=== PATIENT | female | born 1955 | race American Indian/Alaskan Native ===

== ENCOUNTER 2018-09-25 18:26 | Emergency (ER) | payer SELFPAY ==
[2018-09-25 19:03] VITALS: BP 154/89; PULSE 77; RESP 18; TEMP 98.1
[2018-09-25] MEDS ORDERED: Sodium Chloride 0.9% 1,000 ML IV STA (19:22)
[2018-09-25] MEDS ORDERED: Insulin Regular 1 UNITS/0.01 ML ML IVP STA (19:22)
[2018-09-25 19:51] LABS: BASO # 0.01 K/mm3 (0.0-2.0); BASO % 0.2 % (0.0-3.0); EOS # 0.2 (0.0-0.7); EOS % 2.4 % (1.5-5.0); GRAN # 2.45 (1.4-6.5); GRAN % 39.7 % (50.0-68.0); HEMOGLOBIN 13.3 g/dL (12.0-16.0); LYMPH # 3.4 (1.2-3.4); LYMPH % 54.5 % (22.0-35.0); MEAN CELL VOLUME 82.8 fl (80.0-105.0); MEAN CORPUSCULAR HEMOGLOBIN 28.5 pg (25.0-35.0); MEAN CORPUSCULAR HGB CONC 34.5 g/dl (31.0-37.0); MEAN PLATELET VOLUME 11.1 fl (7.0-11.0); MONO # 0.2 (0.1-0.6); MONO % 3.2 % (1.0-6.0); RBC 4.66 10^6/uL (3.5-6.1); WHITE BLOOD COUNT 6.2 10^3/uL (4.5-11.0)
--- NOTE | 2018-09-25 19:53 | ED PDOC ---
Arrival/HPI - General Chief Complaint: High Blood Sugar Time Seen by Provider: 09/25/18 18:39 Historian: Patient - History of Present Illness Narrative History of Present Illness (Text): 09/25/18 19:50 63yo female with pmhx of hypertension and Diabetes who present with complaint elevated BS. The daughter by the bedside [place] her insulin 2weeks ago, so she came to ED for medication. The daughter states she is not sure what the sugar was at home. Patient denies chest pain, SOB, nausea, vomiting, dizziness, polyuria/dipsia/phagia, focal weakness, fever, chills, visual changes, any other complaint. Past Medical History - Provider Review Nursing Documentation Reviewed: Yes - Reproductive Menopause: Yes - Cardiac Hx Hypertension: Yes - Endocrine/Metabolic Hx Diabetes Mellitus Type 2: Yes - Psychiatric Hx Substance Use: No Family/Social History - Physician Review Nursing Documentation Reviewed: Yes Family/Social History: Unknown Family HX Smoking Status: Never Smoked Hx Alcohol Use: No Frequency of alcohol use: Socially Hx Substance Use: No Allergies/Home Meds Allergies/Adverse Reactions: Allergies No Known Allergies Allergy (Verified 09/25/18 19:03) Review of Systems - Physician Review All systems were reviewed & negative as marked: Yes - Review of Systems Constitutional: Normal Eyes: Normal ENT: Normal Respiratory: Normal Cardiovascular: Normal Gastrointestinal: Normal Genitourinary Female: Normal Musculoskeletal: Normal Skin: Normal Neurological: Normal Endocrine: Other (Elevated BS) Hemo/Lymphatic: Normal Psychiatric: Normal Physical Exam Vital Signs Reviewed: Yes Vital Signs Temp Pulse Resp BP Pulse Ox 09/25/18 18:57 98.1 F 77 18 154/89 H 100 Temperature: Afebrile Blood Pressure: Normal Pulse: Regular Respiratory Rate: Normal Appearance: Positive for: Well-Appearing, Non-Toxic, Comfortable Pain Distress: None Mental Status: Positive for: Alert and Oriented X 3 Finger Stick Blood Glucose: 308 - Systems Exam Head: Present: Atraumatic, Normocephalic Pupils: Present: PERRL Extroacular Muscles: Present: EOMI Conjunctiva: Present: Normal Mouth: Present: Moist Mucous Membranes Neck: Present: Normal Range of Motion Respiratory/Chest: Present: Clear to Auscultation, Good Air Exchange. No: Respiratory Distress, Accessory Muscle Use Cardiovascular: Present: Regular Rate and Rhythm, Normal S1, S2. No: Murmurs Abdomen: No: Tenderness, Distention, Peritoneal Signs Back: Present: Normal Inspection Upper Extremity: Present: Normal Inspection. No: Cyanosis, Edema Lower Extremity: Present: Normal Inspection. No: Edema Neurological: Present: GCS=15, CN II-XII Intact, Speech Normal Skin: Present: Warm, Dry, Normal Color. No: Rashes Psychiatric: Present: Alert, Oriented x 3, Normal Insight, Normal Concentration Medical Decision Making ED Course and Treatment: 09/26/18 00:25 63yo female present with the daughter requesting refill of her insulin. PT was hemodynamically stable in ED. Her FS was 320 in ED Lab UA 1L NS, 5units of regular insulin EKG On re evaluation her FS improved in ED with medication and hydration Lab was otherwise unremarkable EKG NSR @ 63bpm. N-stemi PT was DC home with Novolog 70/30 Referred to the clinic - Medication Orders Current Medication Orders: Sodium Chloride (Sodium Chloride 0.9%) 1,000 mls @ 999 mls/hr IV .Q1H1M STA Stop: 09/25/18 20:22 Discontinued Medications Insulin Human Regular (Humulin R) 5 units IVP ONCE STA Stop: 09/25/18 19:23 Disposition/Present on Arrival - Present on Arrival Any Indicators Present on Arrival: No History of DVT/PE: No History of Uncontrolled Diabetes: No Urinary Catheter: No History of Decub. Ulcer: No History Surgical Site Infection Following: None - Disposition Have Diagnosis and Disposition been Completed?: Yes Diagnosis: Diabetes Disposition: HOME/ ROUTINE Disposition Time: 20:55 Patient Plan: Discharge Condition: STABLE Discharge Instructions (ExitCare): Type 2 Diabetes, Diabetes Diet Additional Instructions: Follow up with the clinic Return to ED for any new or worsening symptoms Prescriptions: Insulin Aspart/Insulin Aspar [Novolog Mix 70/30 (70/30 units/ml)] 100 units SC BID #100 unit Referrals: Chrissy Smith MD [Medical Doctor] - Follow up with primary Forms: [employer] (Nigerian)
[2018-09-25 20:05] LABS: INR 0.99; PARTIAL THROMBOPLASTIN TIME 35.2 Seconds (25.1-36.5); PROTHROMBIN TIME 11.3 SECONDS (9.4-12.5)
[2018-09-25 20:10] LABS: ALB/GLOB RATIO 1.3 (1.1-1.8); ALBUMIN 4.1 g/dL (3.0-4.8); ALT/SGPT 27 U/L (7-56); AST/SGOT 28 U/L (14-36); BLOOD UREA NITROGEN 18 mg/dL (7-21); CALCIUM 9.9 mg/dL (8.4-10.5); GFR NON-AFRICAN AMERICAN > 60
[2018-09-25 20:12] LABS: TROPONIN I < 0.01 ng/mL
[2018-09-25 21:06] LABS: URINE BILIRUBIN NEGATIVE (NEGATIVE); URINE BLOOD NEGATIVE (NEGATIVE); URINE GLUCOSE (UA) >=1000 mg/dL (NEGATIVE); URINE LEUKOCYTE ESTERASE NEGATIVE Leu/uL (NEGATIVE); URINE PROTEIN NEGATIVE mg/dL (<30 mg/dL); URINE UROBILINOGEN 0.2 E.U./dL (<1 E.U./dL)
[2018-09-25 21:08] LABS: URINE APPEARANCE SL CLOUDY (CLEAR); URINE COLOR YELLOW (YELLOW)
[2018-09-25 21:36] VITALS: O2SAT 98
--- NOTE | 2018-09-26 20:48 | CARD ---
APPROVED REPORT Date of service: 09/25/2018 EKG Measurement Heart [id number] <Conclusion> Normal sinus rhythm Possible Left atrial enlargement Borderline ECG
== END 2018-09-25 21:34 | disposition home or self-care (01) ==
LOC: ED 18:26
DX: E11.9 Type 2 diabetes mellitus without complications (principal); Z79.4 Long term (current) use of insulin; I10 Essential (primary) hypertension
CPT/HCPCS: 80053; 81003; 82550; 82948; 83615; 83735; 84484; 85025; 85610; 85730; 93005; 96361; 96374; 99283; J7030

== ENCOUNTER 2018-11-23 09:10 | Outpatient (CLI) | payer OTHER | END 2018-11-23 09:11 | disposition home or self-care (01) | LOC: LAB 09:10 ==

== ENCOUNTER 2018-11-26 15:58 | Outpatient (CLI) | payer OTHER | END 2018-11-26 15:59 | disposition home or self-care (01) | LOC: LAB 15:58 ==

== ENCOUNTER 2018-12-05 10:20 | Inpatient (IN) | payer MEDICAID, OTHER ==
[~2018-12-05 10:20] MED LIST: MetroNIDAZOLE 500 mg/100 ml IVPB ONE
[2018-12-05 10:44] VITALS: BMI 23.8
[2018-12-05 11:52] LABS: BASO # 0.01 K/mm3 (0.0-2.0); BASO % 0.2 % (0.0-3.0); EOS # 0.1 (0.0-0.7); EOS % 1.9 % (1.5-5.0); HEMOGLOBIN 13.4 g/dL (12.0-16.0); LYMPH # 2.8 (1.2-3.4); LYMPH % 46.8 % (22.0-35.0); MEAN CELL VOLUME 85.2 fl (80.0-105.0); MEAN CORPUSCULAR HEMOGLOBIN 28.7 pg (25.0-35.0); MEAN CORPUSCULAR HGB CONC 33.7 g/dl (31.0-37.0); MEAN PLATELET VOLUME 11.3 fl (7.0-11.0); MONO # 0.3 (0.1-0.6); MONO % 5.1 % (1.0-6.0); RBC 4.67 10^6/uL (3.5-6.1); RED CELL DISTRIBUTION WIDTH 12.7 % (11.5-14.5); WHITE BLOOD COUNT 5.9 10^3/uL (4.5-11.0)
[2018-12-05 11:57] LABS: URINE BILIRUBIN NEGATIVE (NEGATIVE); URINE BLOOD NEGATIVE (NEGATIVE); URINE GLUCOSE (UA) >=1000 mg/dL (NEGATIVE); URINE LEUKOCYTE ESTERASE SMALL Leu/uL (NEGATIVE); URINE PROTEIN NEGATIVE mg/dL (<30 mg/dL); URINE UROBILINOGEN 0.2 E.U./dL (<1 E.U./dL)
[2018-12-05 11:59] LABS: URINE APPEARANCE CLEAR (CLEAR); URINE COLOR YELLOW (YELLOW)
--- NOTE | 2018-12-05 12:01 | CP.PCM.CON ---
History of Present Illness - History of Present Illness History of Present Illness: 63 year old female, past medical history of mucinous ovarian carcinoma (2018), HTN, DM, sent to the emergency department by Dr. Smith after evaluation of an outpatient CT abdomen/pelvis on 11/23 showed patient has a dilated appendix with peripheral calcifications suspicious for a mucocele vs mucoepidermoid carcinoma. 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 Patient recently moved here from [place]. In [place], patient underwent a VALERIANO+BSO and no subsequent chemoradiation because tumor was deemed very low malignant potential. Currently, patient states she has intermittent 8/10, burning pain in the right lower quadrant since october but over the past week has gotten worse. The pain does not radiate. Sleeping on her right side causes discomfort. Denies f/c, n/v/d, SOB, CP, bloody bowel movements, or urinary symptoms. PMH: See above PSH: VALERIANO+BSO (2018), Breast cyst aspiration FH: Paternal and maternal sides have DM and HTN, but no known cancer history. SH: Denies tobacco, alcohol, or illicit drug use. Recently moved here from [place]. Daughter takes care of patient. ALL: NKDA Meds: See MAR PMD: Dr. Smith Review of Systems - Constitutional Constitutional: Weakness. absent: Chills, Fever - EENT Eyes: absent: Blurred Vision, Change in Vision Nose/Mouth/Throat: absent: Nasal Congestion, Nasal Discharge - Cardiovascular Cardiovascular: absent: Chest Pain, Dyspnea - Respiratory Respiratory: absent: Cough, Dyspnea - Gastrointestinal Gastrointestinal: Abdominal Pain, Cramping. absent: Coffee Ground Emesis, Constipation, Diarrhea, Hematemesis, Melena, Nausea, Vomiting - Genitourinary Genitourinary: absent: Difficulty Urinating, Dysuria - Musculoskeletal Musculoskeletal: absent: Back Pain, Neck Pain - Integumentary Integumentary: absent: Bleeding Lesions, Changing Lesions - Psychiatric Psychiatric: absent: Anxiety, Depression Past Patient History - Infectious Disease Hx of Infectious Diseases: None - Past Social History Smoking Status: Never Smoked - CARDIAC Hx Hypertension: Yes - ENDOCRINE/METABOLIC Hx Diabetes Mellitus Type 2: Yes - GENITOURINARY/GYNECOLOGICAL Other/Comment: Ovarian CA - PSYCHIATRIC Hx Substance Use: No - SURGICAL HISTORY Hx Herniorrhaphy: Yes Hx Hysterectomy: Yes Other/Comment: ovarian ca sx - ANESTHESIA Hx Anesthesia: Yes Hx Anesthesia Reactions: No Hx Malignant Hyperthermia: No Meds Allergies/Adverse Reactions: Allergies Allergy/AdvReac Type Severity Reaction Status Date / Time No Known Allergies Allergy Verified 09/25/18 19:03 Physical Exam - Constitutional Appears: Well, Non-toxic, No Acute Distress - Head Exam Head Exam: ATRAUMATIC, NORMAL INSPECTION, NORMOCEPHALIC - Eye Exam Eye Exam: EOMI - ENT Exam ENT Exam: Mucous Membranes Dry - Respiratory Exam Respiratory Exam: NORMAL BREATHING PATTERN. absent: Wheezes, Respiratory Distress - Cardiovascular Exam Cardiovascular Exam: REGULAR RHYTHM. absent: Tachycardia - GI/Abdominal Exam GI & Abdominal Exam: Normal Bowel Sounds, Soft, Tenderness Additional comments: RLQ tenderness to palpation, palpable firm mass correlates with image on CT scan - Extremities Exam Extremities exam: Positive for: normal inspection, pedal pulses present - Neurological Exam Neurological exam: Alert, Oriented x3 - Psychiatric Exam Psychiatric exam: Normal Affect, Normal Mood - Skin Skin Exam: Dry, Intact, Normal Color, Warm Additional comments: midline scar from prior surgery - hypertrophic scar Results - Vital Signs Recent Vital Signs: Last Vital Signs Temp 97.5 F L 12/05/18 10:44 Pulse 98 H 12/05/18 10:44 Resp 18 12/05/18 10:44 BP 131/86 12/05/18 10:44 Pulse Ox 100 12/05/18 10:44 - Labs Result Diagrams: 12/05/18 11:30 12/05/18 11:30 Assessment & Plan - Assessment and Plan (Free Text) Assessment: 63F w/ RLQ abdominal pain CTAP evidence of 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 Arnie Field PGY1
[2018-12-05 12:04] LABS: ALB/GLOB RATIO 1.3 (1.1-1.8); ALBUMIN 4.1 g/dL (3.0-4.8); ALT/SGPT 17 U/L (7-56); AST/SGOT 23 U/L (14-36); BLOOD UREA NITROGEN 14 mg/dL (7-21); CALCIUM 9.8 mg/dL (8.4-10.5); GFR NON-AFRICAN AMERICAN > 60; LIPASE 181 U/L (23-300)
[2018-12-05 12:15] LABS: URINE BACTERIA SMALL /hpf; URINE RBC 0 - 2 /hpf (0-2)
--- NOTE | 2018-12-05 12:25 | ED PDOC ---
Arrival/HPI - General Chief Complaint: Abdominal Pain Time Seen by Provider: 12/05/18 10:30 Historian: Patient - History of Present Illness Narrative History of Present Illness (Text): 12/05/18 12:42 63yr old female with a history of ovarian carcinoma, TAHBSO, DM, htn, sent in from the medical clinic for evaluation of an abnormal CAT scan. Patient had a CAT scan of the abdomen and pelvis on 11/23/18 which showed a dilated appendix with concern for mucocele versus epidermoid carcinoma. Patient states she has been having some increasing abdominal pain greatest in the right lower quadrant of the abdomen for the past week although the pain seems to increase in the right lower quadrant over the past 2 days. No nausea vomiting diarrhea or constipation. No chest pain or shortness of breath. No fevers or chills. Patient's daughter states that the patient had an abnormal CAT scan a few months ago which showed the same dilated appendix. Past Medical History - Provider Review Nursing Documentation Reviewed: Yes - Travel History Have you recently traveled outside [place] w/in the past 3 mons?: No - Infectious Disease Hx of Infectious Diseases: None - Cardiac Hx Hypertension: Yes - Endocrine/Metabolic Hx Diabetes Mellitus Type 2: Yes - Genitourinary/Gynecological Other/Comment: Ovarian CA - Psychiatric Hx Substance Use: No - Surgical History Hx Hysterectomy: Yes Other/Comment: ovarian ca sx - Anesthesia Hx Anesthesia: Yes Hx Anesthesia Reactions: No Hx Malignant Hyperthermia: No Family/Social History - Physician Review Nursing Documentation Reviewed: Yes Family/Social History: Unknown Family HX Smoking Status: Never Smoked Hx Alcohol Use: No Hx Substance Use: No Allergies/Home Meds Allergies/Adverse Reactions: Allergies No Known Allergies Allergy (Verified 09/25/18 19:03) Review of Systems - Review of Systems Constitutional: absent: Fatigue, Fevers Respiratory: absent: SOB, Cough Cardiovascular: absent: Chest Pain, Palpitations Gastrointestinal: Abdominal Pain. absent: Constipation, Diarrhea, Nausea, Vomiting Genitourinary Female: absent: Dysuria, Frequency, Hematuria Musculoskeletal: absent: Arthralgias, Back Pain, Neck Pain Skin: absent: Rash, Pruritis Neurological: absent: Headache, Dizziness Psychiatric: absent: Anxiety, Depression Physical Exam Vital Signs Reviewed: Yes Vital Signs Temp Pulse Resp BP Pulse Ox 12/05/18 10:44 97.5 F L 98 H 18 131/86 100 Temperature: Afebrile Blood Pressure: Normal Pulse: Regular Respiratory Rate: Normal Appearance: Positive for: Well-Appearing, Non-Toxic, Comfortable Pain Distress: None Mental Status: Positive for: Alert and Oriented X 3 - Systems Exam Head: Present: Atraumatic Mouth: Present: Moist Mucous Membranes Neck: Present: Normal Range of Motion Respiratory/Chest: Present: Clear to Auscultation, Good Air Exchange. No: Respiratory Distress, Accessory Muscle Use Cardiovascular: Present: Regular Rate and Rhythm, Normal S1, S2. No: Murmurs Abdomen: Present: Tenderness (+ rlq tenderness), Normal Bowel Sounds. No: Distention, Rebound, Guarding Back: Present: Normal Inspection. No: Midline Tenderness, Paraspinal Tenderness Upper Extremity: Present: Normal ROM Lower Extremity: Present: Normal ROM Neurological: Present: GCS=15, Speech Normal Skin: Present: Warm, Dry, Normal Color. No: Rashes Psychiatric: Present: Alert, Oriented x 3 Medical Decision Making ED Course and Treatment: 12/05/18 12:46 63yr old female with hx of ovarian carcinoma with VALERIANO and BSO now with abnormal CT showing dilated appendix concerning for mucocele versus epidermoid carcinoma CBC within normal limits CMP glucose 261 Chest x-ray within normal limits UA shows small leukocytes with 5-10 WBCs EKG shows normal sinus rhythm at 65 bpm normal axis normal intervals no ST elevations Surgery was consulted. residential collections saw the patient at bedside. Case was discussed with Dr. Bal in depth accepts observational status admission to [facility] with surgical consult Patient started on Rocephin for UTI All aspects of this case were discussed the attending of record. Impression: UTI, abdominal pain, abnormal CAT scan Admit obs [facility] - Lab Interpretations Lab Results: Total Bilirubin 0.4 mg/dL (0.2-1.3) 12/05/18 11:30 AST 23 U/L (14-36) 12/05/18 11:30 ALT 17 U/L (7-56) 12/05/18 11:30 Alkaline Phosphatase 82 U/L (38-126) 12/05/18 11:30 Total Protein 7.4 g/dL (5.8-8.3) 12/05/18 11:30 Albumin 4.1 g/dL (3.0-4.8) 12/05/18 11:30 Globulin 3.3 gm/dL 12/05/18 11:30 Albumin/Globulin Ratio 1.3 (1.1-1.8) 12/05/18 11:30 Lipase 181 U/L (23-300) 12/05/18 11:30 Urine Color Yellow (YELLOW) 12/05/18 11:30 Urine Appearance Clear (CLEAR) 12/05/18 11:30 Urine pH 6.0 (4.7-8.0) 12/05/18 11:30 Ur Specific [place] 1.020 (1.005-1.035) 12/05/18 11:30 Urine Protein Negative mg/dL (<30 mg/dL) 12/05/18 11:30 Urine Glucose (UA) >=1000 mg/dL (NEGATIVE) 12/05/18 11:30 Urine Ketones Negative mg/dL (NEGATIVE) 12/05/18 11:30 Urine Blood Negative (NEGATIVE) 12/05/18 11:30 Urine Nitrate Negative (NEGATIVE) 12/05/18 11:30 Urine Bilirubin Negative (NEGATIVE) 12/05/18 11:30 Urine Urobilinogen 0.2 E.U./dL (<1 E.U./dL) 12/05/18 11:30 Ur Leukocyte Esterase Small [place]/uL (NEGATIVE) H 12/05/18 11:30 Urine RBC 0 - 2 /hpf (0-2) 12/05/18 11:30 Urine WBC 5 - 10 /hpf (0-6) H 12/05/18 11:30 Ur Epithelial Cells 4 - 5 /hpf (0-5) 12/05/18 11:30 Urine Bacteria Small /hpf (NONE) 12/05/18 11:30 - RAD Interpretation Radiology Orders: 12/05/18 11:10 CHEST PORTABLE [RAD] Stat Disposition/Present on Arrival - Present on Arrival Any Indicators Present on Arrival: No History of DVT/PE: No History of Uncontrolled Diabetes: No Urinary Catheter: No History of Decub. Ulcer: No History Surgical Site Infection Following: None - Disposition Have Diagnosis and Disposition been Completed?: Yes Diagnosis: Abdominal pain, Urinary tract infection, Abnormal computed tomography of abdomen and pelvis Disposition: HOSPITALIZED Disposition Time: 12:15 Patient Plan: Observation Condition: FAIR
[2018-12-05] MEDS ORDERED: cefTRIAXone 1 gm 1 GM/100 ML BAG IVPB STA (12:42)
--- NOTE | 2018-12-05 13:18 | RAD ---
Date of service: 12/05/2018 HISTORY: Abdominal pain COMPARISON: No prior. FINDINGS: LUNGS: The lungs are well inflated and clear. PLEURA: No pleural effusions or pneumothorax. CARDIOVASCULAR: The heart is normal in size. No aortic atherosclerotic calcifications present. OSSEOUS STRUCTURES: Within normal limits for the patient's age. VISUALIZED UPPER ABDOMEN: Normal. OTHER FINDINGS: None. IMPRESSION: No active pulmonary disease.
--- NOTE | 2018-12-05 13:55 | CP.PCM.HP ---
<Randell Evans - Last Filed: 12/05/18 14:41> History of Present Illness - History of Present Illness History of Present Illness: Randell Evans, PGY-1 History and Physical for Hospitalist Service CC: R sided abdominal pain HPI: 63 year old [facility] female with PMHx of mucinous ovarian carcinoma with VALERIANO-BSO performed back in 2018 in [place], DM on insulin and glipizide, and HTN controlled by diet who presents with complaints of R sided abdominal pain.The patient was sent in from the medical clinic for evaluation of an abnormal abdominal/pelvic CT scan performed two weeks ago, which showed a dilated appendix with concern for mucocele versus epidermoid carcinoma. Patient states she has been having some increasing abdominal pain for the past week, although the pain initially started less severe back in September associated with decreased appetite. Patient chest pain, palpitations, fevers, chills, shortness of breath, cough, nausea, vomiting, diarrhea, hematuria, melena, hematochezia, headaches, dysuria and constipation. 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 Patient takes Aspirin for stroke prophylaxis per home PCP back in [place]. PMHx: DM, HTN, ovarian carcinoma PSHx: VALERIANO-BSO All: anesthetic - ? Ropivacaine Social: Recently immigrated from [place] in 10/03. Denies tobacco, ETOH and illicit drug use Fam Hx: DM and HTN in mother, denies hx of cancer Meds: Insulin, Glipizide, ASA PMD: Dr. Smith Present on Admission - Present on Admission Any Indicators Present on Admission: No Review of Systems - Review of Systems Review of Systems: 12 point ROS completed and negative except as described in HPI. Past Patient History - Infectious Disease Hx of Infectious Diseases: None - Past Social History Smoking Status: Never Smoked - CARDIAC Hx Hypertension: Yes - ENDOCRINE/METABOLIC Hx Diabetes Mellitus Type 2: Yes - GENITOURINARY/GYNECOLOGICAL Other/Comment: Ovarian CA - PSYCHIATRIC Hx Substance Use: No - SURGICAL HISTORY Hx Herniorrhaphy: Yes Hx Hysterectomy: Yes Other/Comment: ovarian ca sx - ANESTHESIA Hx Anesthesia: Yes Hx Anesthesia Reactions: No Hx Malignant Hyperthermia: No Meds Allergies/Adverse Reactions: Allergies Allergy/AdvReac Type Severity Reaction Status Date / Time No Known Allergies Allergy Verified 09/25/18 19:03 Physical Exam - Constitutional Appears: Well, Non-toxic, No Acute Distress - Head Exam Head Exam: ATRAUMATIC, NORMAL INSPECTION, NORMOCEPHALIC - Eye Exam Eye Exam: EOMI, Normal appearance Pupil Exam: PERRL - ENT Exam ENT Exam: Mucous Membranes Moist, Normal Exam - Neck Exam Neck exam: Positive for: Full Rom, Normal Inspection - Respiratory Exam Respiratory Exam: Clear to Auscultation Bilateral, NORMAL BREATHING PATTERN. absent: Chest Wall Tenderness, Rales, Rhonchi, Wheezes - Cardiovascular Exam Cardiovascular Exam: RRR, +S1, +S2 - GI/Abdominal Exam GI & Abdominal Exam: Normal Bowel Sounds, Soft, Tenderness (moderate RLQ tenderness wrapping around to R flank, Mckeon's negative, Rovsing negative). absent: Distended, Firm, Guarding, Rebound - Extremities Exam Extremities exam: Positive for: full ROM, normal inspection. Negative for: pe loren edema, tenderness - Back Exam Back exam: CVA tenderness (R), FULL ROM, NORMAL INSPECTION. absent: CVA tenderness (L) Results - Vital Signs Recent Vital Signs: Last Vital Signs Temp 97.5 F L 12/05/18 10:44 Pulse 98 H 12/05/18 10:44 Resp 18 12/05/18 10:44 BP 131/86 12/05/18 10:44 Pulse Ox 100 12/05/18 10:44 - Labs Result Diagrams: 12/05/18 11:30 12/05/18 11:30 Labs: Laboratory Results - last 24 hr 12/05/18 12/05/18 12/05/18 11:30 11:30 11:30 WBC 5.9 RBC 4.67 Hgb 13.4 Hct 39.8 MCV 85.2 MCH 28.7 MCHC 33.7 RDW 12.7 Plt Count 197 MPV 11.3 H Neut % (Auto) 46.0 L Lymph % (Auto) 46.8 H [place] % (Auto) 5.1 Eos % (Auto) 1.9 Baso % (Auto) 0.2 Lymph # (Auto) 2.8 [place] # (Auto) 0.3 Eos # (Auto) 0.1 Baso # (Auto) 0.01 Absolute Neuts (auto) 2.73 Sodium 138 Potassium 4.1 Chloride 103 Carbon Dioxide 28 Anion Gap 11 BUN 14 Creatinine 0.5 L Est GFR ( Amer) > 60 Est GFR (Non-Af Amer) > 60 Random Glucose 261 H Calcium 9.8 Total Bilirubin 0.4 AST 23 ALT 17 Alkaline Phosphatase 82 Total Protein 7.4 Albumin 4.1 Globulin 3.3 Albumin/Globulin Ratio 1.3 Lipase 181 Urine Color Yellow Urine Appearance Clear Urine pH 6.0 Ur Specific [place] 1.020 Urine Protein Negative Urine Glucose (UA) >=1000 Urine Ketones Negative Urine Blood Negative Urine Nitrate Negative Urine Bilirubin Negative Urine Urobilinogen 0.2 Ur Leukocyte Esterase Small H Urine RBC 0 - 2 Urine WBC 5 - 10 H Ur Epithelial Cells 4 - 5 Urine Bacteria Small Assessment & Plan - Assessment and Plan (Free Text) Assessment: Ms. Galeano is a 63 F w PMHx of ovarian cancer, VALERIANO-BSO, uncontrolled DM and HTN who presents with RLQ abdominal pain. RLQ abdominal pain - CXR no active pulm disease - CT abd/pel 11/23/18 shows Marked dilatation of the appendix measuring 7.6 x 4.0 centimeters with peripheral mural calcification along the distal aspect as well as internal signal heterogeneity, suspicious for a mucocele though mucoid epidermoid carcinoma is not excluded. - General Surgery consulted - Dr. Davidson -recs appreciated regarding assessment for surgical intervention - Toradol for pain control, Zofran for nausea Uncontrolled DM - Hgba1c 11.3, cholesterol under control - Lantus 30 units HS, Medium ISS - Accuchecks , continue to monitor HTN - EKG NSR @ 65 bpm, no ST or T wave changes - Continue to monitor Asymptomatic UTI - Patient denies dysuria, burning and hesitancy. Small leuk esterase and 5-10 WBCs on UA - Rocephin given in ED - No further ABx warranted Stroke prophylaxis - c/w home ASA GI/DVT Ppx - Pepcid/Lovenox Patient seen, case reviewed and plan approved by Dr. Ko. Randell Evans, PGY-1 <Clay Ko - Last Filed: 12/06/18 13:08> Results - Vital Signs Recent Vital Signs: Last Vital Signs Temp 97.6 F 12/06/18 06:00 Pulse 57 L 12/06/18 06:00 Resp 16 12/06/18 06:00 BP 125/80 12/06/18 06:00 Pulse Ox 100 12/06/18 06:00 - Labs Result Diagrams: 12/05/18 11:30 12/05/18 11:30 Labs: Laboratory Results - last 24 hr 12/05/18 12/05/18 12/06/18 16:05 21:23 07:00 PT 12.1 INR 1.07 POC Glucose (mg/dL) 227 H 216 H 12/06/18 12/06/18 07:06 11:21 PT INR POC Glucose (mg/dL) 103 165 H Attending/Attestation - Attestation I have personally seen and examined this patient.: Yes I have fully participated in the care of the patient.: Yes I have reviewed all pertinent clinical information: Yes Notes (Text): 12/06/18 13:04 Attending note; Patient seen and examined with resident in ER. Patient's daughter by the bedside. Patient is complaining of right lower quadrant pain on and off. Denies any fevers, chills. complaining of nausea at times. Complaining of poor appetite. Tolerating diet. Patient is a 63 year old [facility] female with PMHx of mucinous ovarian carcinoma with VALERIANO-BSO performed back in 2018 in [place], DM on insulin and glipizide, and HTN controlled by diet who presents with complaints of R sided abdominal pain. 1. 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 surgery Evaluation requested. 2. nausea; continue Zofran as needed. 3. Abdominal pain; continue Toradol as needed. 4. Diabetes; continue regular insulin sliding scale and Levemir. Will discuss with surgery for further plan. Upon discharge the patient will follow up with [facility] clinic.
[2018-12-05] MEDS: Enoxaparin 40 mg Syringe SC SCH (14:26)
[2018-12-05] MEDS: Insulin Reg-MEDIUM-Coverage SC SCH (17:03)
[2018-12-05] MEDS ORDERED: Non Formulary Medication (Insulin Aspart/Insulin Aspar [Novolog Mix 70/30 (70/30 Units/Ml) SC SCH (18:00)
[2018-12-05] MEDS: Insulin Detemir 100 units/ml Vial (Levemir) SC SCH (22:18)
--- NOTE | 2018-12-05 23:49 | CARD ---
APPROVED REPORT Date of service: 12/05/2018 EKG Measurement Heart [id number] <Conclusion> Normal sinus rhythm Normal ECG
[2018-12-06] MEDS ORDERED: Pantoprazole 40 mg EC Tab PO SCH (06:00)
--- NOTE | 2018-12-06 07:09 | CP.PCM.PN ---
Subjective - Date & Time of Evaluation Date of Evaluation: 12/06/18 Time of Evaluation: 07:06 - Subjective Subjective: Surgery Progress Note for Dr. Gaitan 63F seen and evaluated at bedside this morning. No acute events overnight. Continues to have right sided pain that is controlled by medication. Unable to sleep on her right side. Denies f/c, n/v/d, SOB, CP, or urinary symptoms. Objective - Vital Signs/Intake and Output Vital Signs (last 24 hours): Temp Pulse Resp BP Pulse Ox 98.1 F 59 L 18 127/79 98 12/05/18 22:43 12/05/18 22:43 12/05/18 22:43 12/05/18 22:43 12/05/18 22:43 - Medications Medications: Current Medications Aspirin (Ecotrin) 81 mg PO DAILY [facility] Enoxaparin Sodium (Lovenox) 40 mg SC DAILY [facility]; Protocol Last Admin: 12/05/18 14:26 Dose: 40 mg Famotidine (Pepcid) 40 mg PO [facility] Last Admin: 12/05/18 22:18 Dose: 40 mg Insulin Detemir (Levemir) 30 unit SC [facility] Last Admin: 12/05/18 22:18 Dose: 30 units Insulin Human Regular (Humulin R Med) 0 units SC [facility]; Protocol Last Admin: 12/05/18 17:03 Dose: 3 units Ketorolac Tromethamine (Toradol) 15 mg IVP Q6 PRN PRN Reason: Pain, severe (8-10) Last Admin: 12/05/18 14:26 Dose: 15 mg Ondansetron HCl (Zofran Tab) 4 mg PO Q6H PRN PRN Reason: Nausea/Vomiting - Labs Labs: 12/05/18 11:30 12/05/18 11:30 - Constitutional Appears: Well, Non-toxic, No Acute Distress - Head Exam Head Exam: ATRAUMATIC, NORMAL INSPECTION, NORMOCEPHALIC - Eye Exam Eye Exam: EOMI - ENT Exam ENT Exam: Mucous Membranes Moist - Respiratory Exam Respiratory Exam: NORMAL BREATHING PATTERN. absent: Respiratory Distress - Cardiovascular Exam Cardiovascular Exam: REGULAR RHYTHM. absent: Tachycardia - GI/Abdominal Exam GI & Abdominal Exam: Soft, Tenderness, Normal Bowel Sounds. 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 Arnie Field PGY1
[2018-12-06 07:41] LABS: INR 1.07; PROTHROMBIN TIME 12.1 SECONDS (9.4-12.5)
[2018-12-06] MEDS: Insulin Reg-MEDIUM-Coverage SC SCH ×5 (08:22→22:02)
[2018-12-06] MEDS: Enoxaparin 40 mg Syringe SC SCH (09:57)
--- NOTE | 2018-12-06 12:01 | CP.PCM.PN ---
<Randell Evans - Last Filed: 12/06/18 11:53> Subjective - Date & Time of Evaluation Date of Evaluation: 12/06/18 Time of Evaluation: 08:15 - Subjective Subjective: Randell Evans PGY-1 Progress Note for Hospitalist Service Patient seen and evaluated at bedside. No acute events overnight. Continues to have moderate right sided pain that is controlled by medication that is exacerbated by palpation. Patient denies fevers/chills, nausea/vomiting, urinary symptoms. Tolerating diet and passing soft stool without issue. Objective - Vital Signs/Intake and Output Vital Signs (last 24 hours): Temp Pulse Resp BP Pulse Ox 97.6 F 57 L 16 125/80 100 12/06/18 06:00 12/06/18 06:00 12/06/18 06:00 12/06/18 06:00 12/06/18 06:00 - Medications Medications: Current Medications Aspirin (Ecotrin) 81 mg PO DAILY [facility] Last Admin: 12/06/18 09:56 Dose: 81 mg Enoxaparin Sodium (Lovenox) 40 mg SC DAILY [facility]; Protocol Last Admin: 12/06/18 09:57 Dose: 40 mg Famotidine (Pepcid) 40 mg PO [facility] Last Admin: 12/05/18 22:18 Dose: 40 mg Insulin Detemir (Levemir) 30 unit SC [facility] Last Admin: 12/05/18 22:18 Dose: 30 units Insulin Human Regular (Humulin R Med) 0 units SC [facility]; Protocol Last Admin: 12/06/18 08:22 Dose: Not Given Ketorolac Tromethamine (Toradol) 15 mg IVP Q6 PRN PRN Reason: Pain, severe (8-10) Last Admin: 12/05/18 14:26 Dose: 15 mg Ondansetron HCl (Zofran Tab) 4 mg PO Q6H PRN PRN Reason: Nausea/Vomiting - Labs Labs: 12/05/18 11:30 12/05/18 11:30 PT 12.1 SECONDS (9.4-12.5) 12/06/18 07:00 INR 1.07 12/06/18 07:00 - Additional Findings Additional findings: - Constitutional Appears: Well, Non-toxic, No Acute Distress - Head Exam Head Exam: ATRAUMATIC, NORMAL INSPECTION, NORMOCEPHALIC - Eye Exam Eye Exam: EOMI, Normal appearance Pupil Exam: PERRL - ENT Exam ENT Exam: Mucous Membranes Moist, Normal Exam - Neck Exam Neck exam: Positive for: Full Rom, Normal Inspection - Respiratory Exam Respiratory Exam: Clear to Auscultation Bilateral, NORMAL BREATHING PATTERN. absent: Chest Wall Tenderness, Rales, Rhonchi, Wheezes - Cardiovascular Exam Cardiovascular Exam: RRR, +S1, +S2 - GI/Abdominal Exam GI & Abdominal Exam: Normal Bowel Sounds, Soft, Tenderness (moderate RLQ tenderness wrapping around to R flank, palpable firm mass. Mckeon's negative, Rovsing negative). absent: Distended, Firm, Guarding, Rebound - Extremities Exam Extremities exam: Positive for: full ROM, normal inspection. Negative for: pedal edema, tenderness - Back Exam Back exam: CVA tenderness (R), FULL ROM, NORMAL INSPECTION. absent: CVA tenderness (L) Assessment and Plan - Assessment and Plan (Free Text) Assessment: Ms. Galeano is a 63 F w PMHx of ovarian cancer, VALERIANO-BSO, uncontrolled DM and HTN who presents with RLQ abdominal pain 2/2 radiologically confirmed collection. Plan discussed in detail with patient and daughter at bedside this morning. RLQ abdominal pain - CXR no active pulm disease - CT abd/pel 11/23/18 shows Marked dilatation of the appendix measuring 7.6 x 4.0 centimeters with peripheral mural calcification along the distal aspect as well as internal signal heterogeneity, suspicious for a mucocele though mucoid epidermoid carcinoma is not excluded. - General Surgery consulted - Dr. Lety harp appreciated - Oncology consulted - Dr. Fermin coles appreciated for staging in advance of possible surgical intervention - F/u MRI abd/pelvis with and without contrast to better describe mucocele vs epidermoid carcinoma - Toradol for pain control, Zofran for nausea - F/u cultures Uncontrolled DM - Hgba1c 11.3, cholesterol under control - Lantus 30 units HS, Medium ISS - Accuchecks , continue to monitor HTN - EKG NSR @ 65 bpm, no ST or T wave changes - Continue to monitor Asymptomatic UTI - Patient denies dysuria, burning and hesitancy. Small leuk esterase and 5-10 WBCs on UA - Rocephin given in ED - No further ABx warranted Stroke prophylaxis - hold home ASA for potential OR later in week GI/DVT Ppx - Pepcid/Lovenox Patient seen, case reviewed and plan approved by Dr. Ko. Randell Evans, PGY-1 <Clay Ko - Last Filed: 12/06/18 13:10> Objective - Vital Signs/Intake and Output Vital Signs (last 24 hours): Temp Pulse Resp BP Pulse Ox 97.6 F 57 L 16 125/80 100 12/06/18 06:00 12/06/18 06:00 12/06/18 06:00 12/06/18 06:00 12/06/18 06:00 - Medications Medications: Current Medications Aspirin (Ecotrin) 81 mg PO DAILY [facility] Last Admin: 12/06/18 09:56 Dose: 81 mg Enoxaparin Sodium (Lovenox) 40 mg SC DAILY [facility]; Protocol Last Admin: 12/06/18 09:57 Dose: 40 mg Famotidine (Pepcid) 40 mg PO [facility] Last Admin: 12/05/18 22:18 Dose: 40 mg Insulin Detemir (Levemir) 30 unit SC [facility] Last Admin: 12/05/18 22:18 Dose: 30 units Insulin Human Regular (Humulin R Med) 0 units SC [facility]; Protocol Last Admin: 12/06/18 08:22 Dose: Not Given Ketorolac Tromethamine (Toradol) 15 mg IVP Q6 PRN PRN Reason: Pain, severe (8-10) Last Admin: 12/05/18 14:26 Dose: 15 mg Ondansetron HCl (Zofran Tab) 4 mg PO Q6H PRN PRN Reason: Nausea/Vomiting - Labs Labs: 12/05/18 11:30 12/05/18 11:30 PT 12.1 SECONDS (9.4-12.5) 12/06/18 07:00 INR 1.07 12/06/18 07:00 Attending/Attestation - Attestation I have personally seen and examined this patient.: Yes I have fully participated in the care of the patient.: Yes I have reviewed all pertinent clinical information, including history, physical exam and plan: Yes Notes (Text): 12/06/18 13:09 Attending note; Patient seen and examined with resident. Patient's daughter by the bedside. Patient is complaining of right lower quadrant pain on and off. Denies any fevers, chills. complaining of nausea at times. Complaining of poor appetite. Tolerating diet. Patient is a [address] 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 1. Right Sided abdominal pain; CT abd/pelvis 11/23/18 shows Marked dilatation of the appendix measuring 7.6 x 4 .0 centimeters with peripheral mural calcification along the distal aspect as well as internal signal heterogeneity, suspicious for a mucocele though mucoid epidermoid carcinoma. surgery Evaluation appreciated. MRI of the abdomen and pelvis with and without contrast ordered. 2. nausea; continue Zofran as needed. 3. Abdominal pain; continue Toradol as needed. 4. Diabetes; continue regular insulin sliding scale and Levemir. 5. Mucinous ovarian carcinoma; status post total abdominal hysterectomy and bilateral salpingo-oophorectomy. Oncology evaluation appreciated. Suggested outpatient PET scan. Patient needs close follow-up with [facility] oncology as outpatient. Case discussed with surgery team in detail. pending MRI for further surgery plan. Upon discharge the patient will [place] [facility] [place]
[2018-12-06] MEDS ORDERED: Gadodiamide 287 MG/ML VIAL (20ML) IV ONE (13:16)
[2018-12-06] MEDS: Insulin Detemir 100 units/ml Vial (Levemir) SC SCH (22:03)
--- NOTE | 2018-12-06 23:40 | CP.PCM.CON ---
History of Present Illness - History of Present Illness History of Present Illness: 63 year old female with a history of HTN, DM, ovarian carcinoma s/p TAHBSO in 11/2017, presenting with abdominal pain, found to have a dilated appendix and radiographic appearance of a mucocele. The patient notes to several weeks of [facility] pain. She denies fevers and chills. Her ovarian cancer surgery was in [place] and did not require adjuvant treatment. Past medical history: HTN, DM, ovarian carcinoma s/p TAHBSO Past surgical history: TAHBSO 11/2017 Family history: Denies hematologic and oncologic problems Social history: Denies tobacco, alcohol, and illicit drug use. Allergies: NKA Review of systems: All remaining review of systems including HEENT, cardiovascular, respiratory, gastrointestinal, genitourinary, musculoskeletal, dermatologic, neurologic, and psychiatric are negative unless mentioned in the HPI. Past Patient History - Infectious Disease Hx of Infectious Diseases: None - Past Social History Smoking Status: Never Smoked - CARDIAC Hx Hypertension: Yes - ENDOCRINE/METABOLIC Hx Diabetes Mellitus Type 2: Yes - HEMATOLOGICAL/ONCOLOGICAL Hx Cancer: Yes Other/Comment: R ovarian tumor 2018 - MUSCULOSKELETAL/RHEUMATOLOGICAL Hx Falls: No - GENITOURINARY/GYNECOLOGICAL Other/Comment: Ovarian CA - PSYCHIATRIC Hx Substance Use: No - SURGICAL HISTORY Hx Herniorrhaphy: Yes Hx Hysterectomy: Yes Other/Comment: ovarian ca sx - ANESTHESIA Hx Anesthesia: Yes Hx Anesthesia Reactions: No Hx Malignant Hyperthermia: No Meds Allergies/Adverse Reactions: Allergies Allergy/AdvReac Type Severity Reaction Status Date / Time No Known Allergies Allergy Verified 09/25/18 19:03 - Medications Medications: Current Medications Aspirin (Ecotrin) 81 mg PO DAILY [facility] Last Admin: 12/06/18 09:56 Dose: 81 mg Enoxaparin Sodium (Lovenox) 40 mg SC DAILY [facility]; Protocol Last Admin: 12/06/18 09:57 Dose: 40 mg Famotidine (Pepcid) 40 mg PO [facility] Last Admin: 12/06/18 22:03 Dose: 40 mg Insulin Detemir (Levemir) 30 unit SC [facility] Last Admin: 12/06/18 22:03 Dose: 30 units Insulin Human Regular (Humulin R Med) 0 units SC [facility]; Protocol Last Admin: 12/06/18 22:02 Dose: Not Given Ketorolac Tromethamine (Toradol) 15 mg IVP Q6 PRN PRN Reason: Pain, severe (8-10) Last Admin: 12/06/18 22:02 Dose: 15 mg Ondansetron HCl (Zofran Tab) 4 mg PO Q6H PRN PRN Reason: Nausea/Vomiting Physical Exam - Head Exam Head Exam: ATRAUMATIC - Eye Exam Eye Exam: Normal appearance - ENT Exam ENT Exam: Mucous Membranes Dry - Respiratory Exam Respiratory Exam: NORMAL BREATHING PATTERN - Cardiovascular Exam Cardiovascular Exam: +S1, +S2 - GI/Abdominal Exam GI & Abdominal Exam: Normal Bowel Sounds - Extremities Exam Extremities exam: Positive for: normal inspection - Neurological Exam Neurological exam: Oriented x3 - Psychiatric Exam Psychiatric exam: Normal Affect, Normal Mood - Skin Skin Exam: Warm Results - Vital Signs Recent Vital Signs: Last Vital Signs Temp 97.6 F 12/06/18 22:30 Pulse 66 12/06/18 22:30 Resp 18 12/06/18 22:30 BP 112/68 12/06/18 22:30 Pulse Ox 97 12/06/18 22:30 - Labs Result Diagrams: 12/05/18 11:30 12/05/18 11:30 Labs: Laboratory Results - last 24 hr 12/06/18 12/06/18 12/06/18 07:00 07:06 11:21 PT 12.1 INR 1.07 POC Glucose (mg/dL) 103 165 H 12/06/18 12/06/18 16:20 21:33 PT INR POC Glucose (mg/dL) 217 H 198 H Assessment & Plan (1) Mucocele of appendix Assessment and Plan: by CT scan for MRI evaluation today - if imaging consistent with mucocele, the patient is cleared from an oncologic standpoint for treatment. if imaging is concerning for ovarian cancer recurrence, would recommend mill order scheduler onc evaluation will add CA125 Status: Acute (2) History of ovarian cancer Assessment and Plan: s/p ALLEN 11/2017 in [place] CA125 added Thank you for this interesting consult. Status: Acute
[2018-12-07] MEDS: Insulin Reg-MEDIUM-Coverage SC SCH ×4 (08:41→21:33)
--- NOTE | 2018-12-07 08:57 | CP.PCM.PN ---
<Glynn Zelaya - Last Filed: 12/07/18 22:04> Subjective - Date & Time of Evaluation Date of Evaluation: 12/07/18 Time of Evaluation: 08:41 - Subjective Subjective: Glynn Zelaya DO PGY1 - Internal Medicine [employer] - Hospitalist Progress Note Patient was seen and examined at bedside this morning, No acute events reported overnight. Patient still has complaints of mild abdominal pain; no complaints of N/V/D/C at this time. No urinary complaints voiced at bedside. Objective - Vital Signs/Intake and Output Vital Signs (last 24 hours): Temp Pulse Resp BP Pulse Ox 98 F 58 L 16 130/79 97 12/07/18 06:00 12/07/18 06:00 12/07/18 06:00 12/07/18 06:00 12/07/18 06:00 Intake and Output: 12/07/18 12/07/18 06:59 18:59 Intake Total 240 Balance 240 - Medications Medications: Current Medications Aspirin (Ecotrin) 81 mg PO DAILY [facility] Last Admin: 12/06/18 09:56 Dose: 81 mg Enoxaparin Sodium (Lovenox) 40 mg SC DAILY [facility]; Protocol Last Admin: 12/06/18 09:57 Dose: 40 mg Famotidine (Pepcid) 40 mg PO [facility] Last Admin: 12/06/18 22:03 Dose: 40 mg Insulin Detemir (Levemir) 30 unit SC [facility] Last Admin: 12/06/18 22:03 Dose: 30 units Insulin Human Regular (Humulin R Med) 0 units SC [facility]; Protocol Last Admin: 12/06/18 22:02 Dose: Not Given Ketorolac Tromethamine (Toradol) 15 mg IVP Q6 PRN PRN Reason: Pain, severe (8-10) Last Admin: 12/06/18 22:02 Dose: 15 mg Ondansetron HCl (Zofran Tab) 4 mg PO Q6H PRN PRN Reason: Nausea/Vomiting - Labs Labs: 12/05/18 11:30 12/05/18 11:30 PT 12.1 SECONDS (9.4-12.5) 12/06/18 07:00 INR 1.07 12/06/18 07:00 - Constitutional Appears: Well, Non-toxic, No Acute Distress - Head Exam Head Exam: ATRAUMATIC, NORMOCEPHALIC - Eye Exam Eye Exam: EOMI, PERRL - Respiratory Exam Respiratory Exam: Clear to Ausculation Bilateral, NORMAL BREATHING PATTERN - Cardiovascular Exam Cardiovascular Exam: RRR, +S1, +S2 - GI/Abdominal Exam GI & Abdominal Exam: Soft, Tenderness (Mild RLQ), Normal Bowel Sounds - Extremities Exam Extremities Exam: Normal Capillary Refill Additional comments: 2+ distal pulses LE bilaterally - Neurological Exam Neurological Exam: Alert, Awake, Oriented x3 Assessment and Plan - Assessment and Plan (Free Text) Plan: 63F w/ a PMH of HTN, DM, Ovarian CA s/p total abdominal hysterectomy, oophrectomy, salpingectomy presented to [facility] [place]05 w/ c/o of RLQ pain. PLAN: RLQ Abdominal Pain Prior hx of Mucinous ovarian carcinoma Collection vs Ovarian CA recurrence MRI Abdomen Pelvis w/ IV CON : thick walled loculated lesion in the R pericolic gutter - appendiceal mucocele CA125 elevated - 49 Surgical intervention pending further heme onc evaluation/ reccs Toradol 15 Q6PRN Mild Pain Zofran 4 Q6PRN Nausea General Surgery Consulted - Dr. Davidson Heme/Onc Consulted - Dr. Christensen Will need outpt PET; Will need outpt [facility] [facility]/Onc F/U Uncontrolled DM HbA1C 11.3 Levemir 30HS, Medium ISS Accuchecks ACHS Diabetic Education Consulted Asymptomatic Bacteruria vs UTI No complaints of burning/ itching Hx HTN BP wnl; continue to monitor C/w ASA 81QD GI/DVT PPX: Pepcid Lovenox 40 SC Daily Patient was seen, examined, and discussed w/ attending Dr. Karen Zelaya DO PGY1 - Internal Medicine [employer] Chef - Hospitalist Progress Note <Karen Zelaya R - Last Filed: 12/08/18 06:41> Objective - Vital Signs/Intake and Output Vital Signs (last 24 hours): Temp Pulse Resp BP Pulse Ox 98 F 63 20 118/74 100 12/07/18 22:49 12/07/18 22:49 12/07/18 22:49 12/07/18 22:49 12/07/18 22:49 Intake and Output: 12/07/18 12/08/18 18:59 06:59 Intake Total 1320 Balance 1320 - Medications Medications: Current Medications Aspirin (Ecotrin) 81 mg PO DAILY [facility] Last Admin: 12/06/18 09:56 Dose: 81 mg Enoxaparin Sodium (Lovenox) 40 mg SC DAILY [facility]; Protocol Last Admin: 12/07/18 11:10 Dose: 40 mg Famotidine (Pepcid) 40 mg PO HS [facility] Last Admin: 12/07/18 21:28 Dose: 40 mg Insulin Detemir (Levemir) 30 unit SC [facility] Last Admin: 12/07/18 21:28 Dose: 30 units Insulin Human Regular (Humulin R Med) 0 units SC [facility]; Protocol Last Admin: 12/07/18 21:33 Dose: Not Given Ketorolac Tromethamine (Toradol) 15 mg IVP Q6 PRN PRN Reason: Pain, severe (8-10) Last Admin: 12/07/18 11:09 Dose: 15 mg Ondansetron HCl (Zofran Tab) 4 mg PO Q6H PRN PRN Reason: Nausea/Vomiting - Labs Labs: 12/07/18 12:30 12/07/18 12:30 PT 12.0 SECONDS (9.4-12.5) 12/07/18 12:30 INR 1.06 12/07/18 12:30 APTT 55.0 Seconds (26.9-38.3) H 12/07/18 12:30 Attending/Attestation - Attestation I have personally seen and examined this patient.: Yes I have fully participated in the care of the patient.: Yes I have reviewed all pertinent clinical information, including history, physical exam and plan: Yes Notes (Text): Patient seen and examined by me with resident at approximately 11:30 AM on 12/07/18. Case including HPI, physical exam, and assessment and plan discussed with resident. Agree with above with following additions/corrections. Patient is a 63-year-old female with past medical history significant for mucous ovarian carcinoma with VALERIANO-BSO 2018, type 2 diabetes, and hypertension that presented to the emergency room with right-sided abdominal pain. Patient states she is feeling a little better. Still with right sided abdominal pain. Patient states that pain medications are helping. The pain is intermittent. No associated nausea or vomiting. No diarrhea or constipation. Patient denies any chest pain or palpitations. No headaches or dizziness. No dysuria. No fevers or chills. Patient is tolerating diet. Physical exam: General: Awake and alert sitting up chair in no acute distress. HEENT: Normocephalic, atraumatic. Extraocular muscles intact, pupils equal and reactive, no scleral icterus. Oropharynx is pink and moist. No pharyngeal eryth cheri or exudate appreciated. Neck is supple. Cardiovascular: Normal rhythm. Normal S1 and S2. No murmurs, rubs, or gallops appreciated Pulmonary: Normal respiratory effort. No rhonchi, rales, or wheezing appreciated. Gastrointestinal: Soft, nondistended. Positive right sided abdominal tenderness. Positive bowel sounds all 4 quadrants. No guarding. Musculoskeletal: Moves all extremities. No calf tenderness. No edema. Central nervous system: AAOx3. Dermatologic: Skin warm and dry. Assessment and plan: Patient is a 63-year-old female with past medical history significant for mucous ovarian carcinoma with VALERIANO-BSO 2018, type 2 diabetes, and hypertension that presented to the emergency room with right-sided abdominal pain. 1. Right sided abdominal pain. 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 Pelvic MRI per radiologist showed a cystic loculated lesion in the right paracolic gutter adjacent to the cecum; measures 43 mm AP by 15 mm wide by 72 mm in length; considering the location this could represent an appendiceal mucocele. Abdominal MRI per radiologist shows negative study. Surgical team following, recommendations appreciated. Patient likely for the OR. Hem/onc following, recommendations appreciated. Continue pain management. 2. History of mucous ovarian carcinoma status post VALERIANO-BSO. Hem/onc following, recommendations appreciated. Patient will need close head of art/onc follow up as outpatient. CA-125 antigen elevated at 49.6. 3. Type 2 diabetes. Continue insulin sliding scale. Continue Levemir. Continue to monitor Accu-Cheks. Hemoglobin A1c 5.2. 4. History of hypertension. Controlled with diet. Continue monitor off medications. 5. GI/DVT prophylaxis. Pepcid/Lovenox. 6. Patient is a full code. Case discussed in detail with the patient and patient's daughter at bedside regarding current diagnosis and treatment plan. All questions answered.
--- NOTE | 2018-12-07 09:13 | CP.PCM.PN ---
Subjective - Date & Time of Evaluation Date of Evaluation: 12/07/18 Time of Evaluation: 09:09 - Subjective Subjective: Surgery Progress Note for Dr. Gaitan 63F seen and evaluated at bedside this morning. No acute events overnight. Continues to have right sided pain that is controlled by medication. Unable to sleep on her right side. Denies f/c, n/v/d, SOB, CP, or urinary symptoms. Objective - Vital Signs/Intake and Output Vital Signs (last 24 hours): Temp Pulse Resp BP Pulse Ox 98 F 58 L 16 130/79 97 12/07/18 06:00 12/07/18 06:00 12/07/18 06:00 12/07/18 06:00 12/07/18 06:00 Intake and Output: 12/07/18 12/07/18 06:59 18:59 Intake Total 240 Balance 240 - Medications Medications: Current Medications Aspirin (Ecotrin) 81 mg PO DAILY [facility] Last Admin: 12/06/18 09:56 Dose: 81 mg Enoxaparin Sodium (Lovenox) 40 mg SC DAILY [facility]; Protocol Last Admin: 12/06/18 09:57 Dose: 40 mg Famotidine (Pepcid) 40 mg PO HS [facility] Last Admin: 12/06/18 22:03 Dose: 40 mg Insulin Detemir (Levemir) 30 unit SC [facility] Last Admin: 12/06/18 22:03 Dose: 30 units Insulin Human Regular (Humulin R Med) 0 units SC [facility]; Protocol Last Admin: 12/07/18 08:41 Dose: 5 units Ketorolac Tromethamine (Toradol) 15 mg IVP Q6 PRN PRN Reason: Pain, severe (8-10) Last Admin: 12/06/18 22:02 Dose: 15 mg Ondansetron HCl (Zofran Tab) 4 mg PO Q6H PRN PRN Reason: Nausea/Vomiting - Labs Labs: 12/05/18 11:30 12/05/18 11:30 PT 12.1 SECONDS (9.4-12.5) 12/06/18 07:00 INR 1.07 12/06/18 07:00 - Additional Findings Additional findings: - Constitutional Appears: Well, Non-toxic, No Acute Distress - Head Exam Head Exam: ATRAUMATIC, NORMAL INSPECTION, NORMOCEPHALIC - Eye Exam Eye Exam: EOMI - ENT Exam ENT Exam: Mucous Membranes Moist - Respiratory Exam Respiratory Exam: NORMAL BREATHING PATTERN. absent: Respiratory Distress - Cardiovascular Exam Cardiovascular Exam: REGULAR RHYTHM. absent: Tachycardia - GI/Abdominal Exam GI & Abdominal Exam: Soft, Tenderness, Normal Bowel Sounds. 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 Arnie Capps PGY1
[2018-12-07] MEDS ORDERED: Gadodiamide 287 MG/ML VIAL (15ML) IV ONE (10:00)
[2018-12-07] MEDS: Enoxaparin 40 mg Syringe SC SCH (11:10)
--- NOTE | 2018-12-07 12:53 | MRI ---
Date of service: 12/07/2018 PROCEDURE: MRI Abdomen with and without contrast HISTORY: Rule out Mets COMPARISON: None available. TECHNIQUE: Multisequence, multiplanar MR images of the abdomen with and without gadolinium contrast enhancement. 15 cc of Omniscan FINDINGS: LIVER: Unremarkable. GALLBLADDER: Unremarkable. SPLEEN: Unremarkable. PANCREAS: Unremarkable. ADRENALS: Unremarkable. KIDNEYS: Unremarkable. AORTA: No aneurysm. ASCITES: None. PERITONEUM: Unremarkable. LYMPH NODES: Unremarkable. OTHER FINDINGS: There is a loculated fluid collection in the right pericolic gutter. This was reported on the pelvic MRI IMPRESSION: Negative study
[2018-12-07 13:12] LABS: BASO # 0.01 K/mm3 (0.0-2.0); BASO % 0.2 % (0.0-3.0); EOS # 0.1 (0.0-0.7); EOS % 2.4 % (1.5-5.0); HEMOGLOBIN 13.2 g/dL (12.0-16.0); LYMPH # 2.7 (1.2-3.4); LYMPH % 53.5 % (22.0-35.0); MEAN CELL VOLUME 84.1 fl (80.0-105.0); MEAN CORPUSCULAR HEMOGLOBIN 28.8 pg (25.0-35.0); MEAN CORPUSCULAR HGB CONC 34.2 g/dl (31.0-37.0); MEAN PLATELET VOLUME 11.2 fl (7.0-11.0); MONO # 0.2 (0.1-0.6); RBC 4.59 10^6/uL (3.5-6.1); RED CELL DISTRIBUTION WIDTH 12.6 % (11.5-14.5)
[2018-12-07 13:13] LABS: INR 1.06
[2018-12-07 13:16] LABS: ALB/GLOB RATIO 1.2 (1.1-1.8); ALBUMIN 4.1 g/dL (3.0-4.8); ALT/SGPT 17 U/L (7-56); AST/SGOT 24 U/L (14-36); BLOOD UREA NITROGEN 27 mg/dL (7-21); CALCIUM 9.8 mg/dL (8.4-10.5); GFR NON-AFRICAN AMERICAN > 60
--- NOTE | 2018-12-07 14:05 | MRI ---
Date of service: 12/06/2018 PROCEDURE: MRI pelvis with and without contrast HISTORY: h/o ovarian ca, r/o mets COMPARISON: None available. TECHNIQUE: Multiplanar, multi sequence MR images of the pelvis were obtained following administration of intravenous gadolinium contrast. 20 cc of Omniscan FINDINGS: UTERUS: Removed OVARIES/ ADNEXA: Removed. Not visible BOWEL: Partially visualized rectosigmoid colon is grossly unremarkable. There is a cystic thick-walled loculated lesion in the right pericolic gutter adjacent to the cecum. This measures 43 mm AP x 50 mm wide by 72 mm in length. Considering the location this could represent an appendiceal mucocele. LYMPH NODES: No lymphadenopathy. BLADDER: Unremarkable. FREE FLUID: None. PELVIC BONES: Grossly unremarkable. OTHER FINDINGS: The report concurs with the preliminary [facility] report IMPRESSION: There is a cystic thick-walled loculated lesion in the right pericolic gutter adjacent to the cecum. This measures 43 mm AP x 50 mm wide by 72 mm in length. Considering the location this could represent an appendiceal mucocele.
[2018-12-07] MEDS: Insulin Detemir 100 units/ml Vial (Levemir) SC SCH (21:28)
--- NOTE | 2018-12-07 22:52 | CP.PCM.PN ---
Subjective - Date & Time of Evaluation Date of Evaluation: 12/07/18 Time of Evaluation: 19:00 - Subjective Subjective: Has some abdominal pain. Objective - Vital Signs/Intake and Output Vital Signs (last 24 hours): Temp Pulse Resp BP Pulse Ox 98 F 63 20 118/74 100 12/07/18 22:49 12/07/18 22:49 12/07/18 22:49 12/07/18 22:49 12/07/18 22:49 Intake and Output: 12/07/18 12/08/18 18:59 06:59 Intake Total 1200 Balance 1200 - Medications Medications: Current Medications Aspirin (Ecotrin) 81 mg PO DAILY [facility] Last Admin: 12/06/18 09:56 Dose: 81 mg Enoxaparin Sodium (Lovenox) 40 mg SC DAILY [facility]; Protocol Last Admin: 12/07/18 11:10 Dose: 40 mg Famotidine (Pepcid) 40 mg PO [facility] Last Admin: 12/07/18 21:28 Dose: 40 mg Insulin Detemir (Levemir) 30 unit SC [facility] Last Admin: 12/07/18 21:28 Dose: 30 units Insulin Human Regular (Humulin R Med) 0 units SC [facility]; Protocol Last Admin: 12/07/18 21:33 Dose: Not Given Ketorolac Tromethamine (Toradol) 15 mg IVP Q6 PRN PRN Reason: Pain, severe (8-10) Last Admin: 12/07/18 11:09 Dose: 15 mg Ondansetron HCl (Zofran Tab) 4 mg PO Q6H PRN PRN Reason: Nausea/Vomiting - Labs Labs: 12/07/18 12:30 12/07/18 12:30 PT 12.0 SECONDS (9.4-12.5) 12/07/18 12:30 INR 1.06 12/07/18 12:30 APTT 55.0 Seconds (26.9-38.3) H 12/07/18 12:30 - Head Exam Head Exam: ATRAUMATIC - Eye Exam Eye Exam: Normal appearance - ENT Exam ENT Exam: Mucous Membranes Dry - Respiratory Exam Respiratory Exam: NORMAL BREATHING PATTERN - Cardiovascular Exam Cardiovascular Exam: +S1, +S2 - GI/Abdominal Exam GI & Abdominal Exam: Normal Bowel Sounds Assessment and Plan (1) Mucocele of appendix Assessment & Plan: MRI consistent with mucocele, the patient is cleared from an oncologic standpoint for surgical treatment. Status: Acute (2) History of ovarian cancer Assessment & Plan: mild elevation of CA125 outpatient [facility] f/u Status: Acute
--- NOTE | 2018-12-08 07:52 | CP.PCM.PN ---
Subjective - Date & Time of Evaluation Date of Evaluation: 12/08/18 Time of Evaluation: 07:48 - Subjective Subjective: urgery Progress Note for Dr. Gaitan 63F seen and evaluated at bedside this morning. No acute events overnight. Continues to have right sided pain that is controlled by medication. Unable to sleep on her right side. Denies f/c, n/v/d, SOB, CP, or urinary symptoms. Objective - Vital Signs/Intake and Output Vital Signs (last 24 hours): Temp Pulse Resp BP Pulse Ox 97.7 F 78 18 119/79 98 12/08/18 06:00 12/08/18 06:00 12/08/18 06:00 12/08/18 06:00 12/08/18 06:00 Intake and Output: 12/08/18 12/08/18 06:59 18:59 Intake Total 1320 Balance 1320 - Medications Medications: Current Medications Aspirin (Ecotrin) 81 mg PO DAILY [facility] Last Admin: 12/06/18 09:56 Dose: 81 mg Enoxaparin Sodium (Lovenox) 40 mg SC DAILY [facility]; Protocol Last Admin: 12/07/18 11:10 Dose: 40 mg Famotidine (Pepcid) 40 mg PO [facility] Last Admin: 12/07/18 21:28 Dose: 40 mg Insulin Detemir (Levemir) 30 unit SC [facility] Last Admin: 12/07/18 21:28 Dose: 30 units Insulin Human Regular (Humulin R Med) 0 units SC [facility]; Protocol Last Admin: 12/07/18 21:33 Dose: Not Given Ketorolac Tromethamine (Toradol) 15 mg IVP Q6 PRN PRN Reason: Pain, severe (8-10) Last Admin: 12/07/18 11:09 Dose: 15 mg Ondansetron HCl (Zofran Tab) 4 mg PO Q6H PRN PRN Reason: Nausea/Vomiting - Labs Labs: 12/07/18 12:30 12/07/18 12:30 PT 12.0 SECONDS (9.4-12.5) 12/07/18 12:30 INR 1.06 12/07/18 12:30 APTT 55.0 Seconds (26.9-38.3) H 12/07/18 12:30 - Additional Findings Additional findings: - Constitutional Appears: Well, Non-toxic, No Acute Distress - Head Exam Head Exam: ATRAUMATIC, NORMAL INSPECTION, NORMOCEPHALIC - Eye Exam Eye Exam: EOMI - ENT Exam ENT Exam: Mucous Membranes Moist - Respiratory Exam Respiratory Exam: NORMAL BREATHING PATTERN. absent: Respiratory Distress - Cardiovascular Exam Cardiovascular Exam: REGULAR RHYTHM. absent: Tachycardia - GI/Abdominal Exam GI & Abdominal Exam: Soft, Tenderness, Normal Bowel Sounds. 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 Arnie Capps PGY1
[2018-12-08] MEDS: Insulin Reg-MEDIUM-Coverage SC SCH ×4 (08:56→22:00)
[2018-12-08] MEDS: Enoxaparin 40 mg Syringe SC SCH (09:00)
--- NOTE | 2018-12-08 20:56 | CP.PCM.PN ---
<Glynn Zelaya - Last Filed: 12/08/18 20:45> Subjective - Date & Time of Evaluation Date of Evaluation: 12/08/18 Time of Evaluation: 10:00 (.) - Subjective Subjective: Glynn Zelyaa DO PGY1 - Internal Medicine Predictive Maintenance Specialist - Hospitalist Progress Note Patient was seen and examined at bedside this morning; No acute events reported overnight Patient tolerating diet well; minimal complaints of abdominal pain at this time Denies fevers, chills, n/v/d/c, chest pain, sob, Findings of MRI and tentative management plan discussed w/ patient daughter at bedside this morning. All questions answered. Objective - Vital Signs/Intake and Output Vital Signs (last 24 hours): Temp Pulse Resp BP Pulse Ox 98.0 F 66 18 145/74 98 12/08/18 14:00 12/08/18 14:00 12/08/18 14:00 12/08/18 14:00 12/08/18 14:00 - Medications Medications: Current Medications Aspirin (Ecotrin) 81 mg PO DAILY [facility] Last Admin: 12/06/18 09:56 Dose: 81 mg Enoxaparin Sodium (Lovenox) 40 mg SC DAILY [facility]; Protocol Last Admin: 12/08/18 09:00 Dose: 40 mg Famotidine (Pepcid) 40 mg PO [facility] Last Admin: 12/07/18 21:28 Dose: 40 mg Insulin Detemir (Levemir) 30 unit SC [facility] Last Admin: 12/07/18 21:28 Dose: 30 units Insulin Human Regular (Humulin R Med) 0 units SC [facility]; Protocol Last Admin: 12/08/18 16:56 Dose: Not Given Ketorolac Tromethamine (Toradol) 15 mg IVP Q6 PRN PRN Reason: Pain, severe (8-10) Last Admin: 12/07/18 11:09 Dose: 15 mg Ondansetron HCl (Zofran Tab) 4 mg PO Q6H PRN PRN Reason: Nausea/Vomiting - Labs Labs: 12/07/18 12:30 12/07/18 12:30 PT 12.0 SECONDS (9.4-12.5) 12/07/18 12:30 INR 1.06 12/07/18 12:30 APTT 55.0 Seconds (26.9-38.3) H 12/07/18 12:30 - Constitutional Appears: Well, Non-toxic, No Acute Distress - Head Exam Head Exam: ATRAUMATIC, NORMOCEPHALIC - Eye Exam Eye Exam: EOMI, PERRL - Respiratory Exam Respiratory Exam: Clear to Ausculation Bilateral, NORMAL BREATHING PATTERN - Cardiovascular Exam Cardiovascular Exam: RRR, +S1, +S2 - GI/Abdominal Exam GI & Abdominal Exam: Soft, Tenderness RLQ- Deep Palpation, Normal Bowel Sounds - Extremities Exam Extremities Exam: Normal Capillary Refill Additional comments: 2+ distal pulses LE bilaterally - Neurological Exam Neurological Exam: Alert, Awake, Oriented x3 Assessment and Plan - Assessment and Plan (Free Text) Assessment: 63F w/ a PMH of HTN, DM, Ovarian CA s/p total abdominal hysterectomy, oophrectomy, salpingectomy presented to [facility] on 12/05 w/ c/o of RLQ pain. PLAN: RLQ Abdominal Pain Surgical intervention tentatively for this admission; Heme/Onc agreeable for surgical intervention at this time time. MRI Abdomen Pelvis w/ IV CON : thick walled loculated lesion in the R pericolic gutter - appendiceal mucocele Toradol 15 Q6PRN Mild Pain Zofran 4 Q6PRN Nausea General Surgery Following - Dr. Davidson Heme/Onc Following - Dr. Christensen Prior hx of Mucinous ovarian carcinoma CA125 elevated - 49 Will need outpt PET; Will need outpt INSTALLATION AND REPAIR TECHNICIAN/Onc F/U DM Repeat HbA1C 5.2 AM Fasting glucose elevated Levemir 30HS, Medium ISS Accuchecks ACHS Diabetic Education completed Hx HTN BP wnl; continue to monitor C/w ASA 81QD GI/DVT PPX: Pepcid Lovenox 40 SC Daily DISPO: Pt. is to follow up w/ PMD Dr. Smith and [facility] on December 25 at 1:30pm upon discharge Patient was seen, examined, and discussed w/ attending Dr. Karen Zelaya DO PGY1 - Internal Medicine Predictive Maintenance Specialist - Hospitalist Progress Note <Karen Zelaya R - Last Filed: 12/09/18 08:04> Objective - Vital Signs/Intake and Output Vital Signs (last 24 hours): Temp Pulse Resp BP Pulse Ox 97.6 F 70 18 112/71 98 12/08/18 22:51 12/08/18 22:51 12/08/18 22:51 12/08/18 22:51 12/08/18 22:51 Intake and Output: 12/09/18 12/09/18 06:59 18:59 Intake Total 180 Balance 180 - Medications Medications: Current Medications Aspirin (Ecotrin) 81 mg PO DAILY [facility] Last Admin: 12/06/18 09:56 Dose: 81 mg Enoxaparin Sodium (Lovenox) 40 mg SC DAILY [facility]; Protocol Last Admin: 12/08/18 09:00 Dose: 40 mg Famotidine (Pepcid) 40 mg PO HS [facility] Last Admin: 12/08/18 22:01 Dose: 40 mg Insulin Detemir (Levemir) 30 unit SC [facility] Last Admin: 12/08/18 22:00 Dose: 30 units Insulin Human Regular (Humulin R Med) 0 units SC [facility]; Protocol Last Admin: 12/08/18 22:00 Dose: Not Given Ketorolac Tromethamine (Toradol) 15 mg IVP Q6 PRN PRN Reason: Pain, severe (8-10) Last Admin: 12/08/18 22:02 Dose: 15 mg Ondansetron HCl (Zofran Tab) 4 mg PO Q6H PRN PRN Reason: Nausea/Vomiting - Labs Labs: 12/07/18 12:30 12/07/18 12:30 PT 12.0 SECONDS (9.4-12.5) 12/07/18 12:30 INR 1.06 12/07/18 12:30 APTT 55.0 Seconds (26.9-38.3) H 12/07/18 12:30 Attending/Attestation - Attestation I have personally seen and examined this patient.: Yes I have fully participated in the care of the patient.: Yes I have reviewed all pertinent clinical information, including history, physical exam and plan: Yes Notes (Text): Patient seen and examined by me with resident at approximately 12:20PM on 12/08/18. Case including HPI, physical exam, and assessment and plan discussed with resident. Agree with above with following additions/corrections. Patient is a 63-year-old female with past medical history significant for mucous ovarian carcinoma with VALERIANO-BSO 2018, type 2 diabetes, and hypertension that presented to the emergency room with right-sided abdominal pain. Patient states she is feeling ok. Patient states right sided abdominal pain is improved with pain medications. The pain is intermittent. No associated nausea or vomiting. Patient is tolerating diet. No diarrhea or constipation. Patient denies any chest pain or palpitations. No headaches or dizziness. No dysuria. No fevers or chills. Physical exam: General: Awake and alert sitting up chair in no acute distress. HEENT: Normocephalic, atraumatic. Extraocular muscles intact, pupils equal and reactive, no scleral icterus. Oropharynx is pink and moist. No pharyngeal erythema or exudate appreciated. Neck is supple. Cardiovascular: Normal rhythm. Normal S1 and S2. No murmurs, rubs, or gallops appreciated Pulmonary: Normal respiratory effort. No rhonchi, rales, or wheezing appreciated. Gastrointestinal: Soft, nondistended. Positive right sided abdominal tenderness. Positive bowel sounds all 4 quadrants. No guarding. Musculoskeletal: Moves all extremities. No calf tenderness. No edema. Central nervous system: AAOx3. Dermatologic: Skin warm and dry. Assessment and plan: Patient is a 63-year-old female with past medical history significant for mucous ovarian carcinoma with VALERIANO-BSO 2018, type 2 diabetes, and hypertension that presented to the emergency room with right-sided abdominal pain. 1. Right sided abdominal pain. Appendiceal mucocele. Surgical team following, recommendations appreciated. Patient likely for the OR for removal. Hem/onc recommendations appreciated. Continue pain management. Pelvic MRI per radiologist showed a cystic loculated lesion in the right paracolic gutter adjacent to the cecum; measures 43 mm AP by 15 mm wide by 72 mm in length; considering the location this could represent an appendiceal mucocele. Abdominal MRI per radiologist shows negative study. 2. History of mucous ovarian carcinoma status post VALERIANO-BSO. Hem/onc recommendations appreciated. 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 CA-125 antigen elevated at 49.6. 3. Type 2 diabetes. Continue insulin sliding scale. Continue Levemir. Continue to monitor Accu-Cheks. Hemoglobin A1c 5.2. 4. History of hypertension. Controlled with diet. Continue monitor off medications. 5. GI/DVT prophylaxis. Pepcid/Lovenox. 6. Patient is a full code. Case discussed in detail with the patient and patient's daughter at bedside regarding current diagnosis and treatment plan. All questions answered.
[2018-12-08] MEDS: Insulin Detemir 100 units/ml Vial (Levemir) SC SCH (22:00)
[2018-12-09] MEDS: Enoxaparin 40 mg Syringe SC SCH (09:29)
--- NOTE | 2018-12-09 11:07 | CP.PCM.PN ---
Subjective - Date & Time of Evaluation Date of Evaluation: 12/09/18 Time of Evaluation: 11:04 - Subjective Subjective: General Surgery Progress Note for Dr. Gaitan Patient was seen and evaluated at bedside this morning. No new complaints. No acute events overnight. Continues to have right sided pain that is controlled by medication. Unable to sleep on her right side. Denies f/c, n/v/d, SOB, CP, or urinary symptoms. Objective - Vital Signs/Intake and Output Vital Signs (last 24 hours): Temp Pulse Resp BP Pulse Ox 98 F 75 18 115/75 99 12/09/18 06:00 12/09/18 06:00 12/09/18 06:00 12/09/18 06:00 12/09/18 06:00 Intake and Output: 12/09/18 12/09/18 06:59 18:59 Intake Total 180 Balance 180 - Medications Medications: Current Medications Aspirin (Ecotrin) 81 mg PO DAILY [facility] Last Admin: 12/06/18 09:56 Dose: 81 mg Enoxaparin Sodium (Lovenox) 40 mg SC DAILY [facility]; Protocol Last Admin: 12/09/18 09:29 Dose: 40 mg Famotidine (Pepcid) 40 mg PO [facility] Last Admin: 12/08/18 22:01 Dose: 40 mg Insulin Detemir (Levemir) 30 unit SC [facility] Last Admin: 12/08/18 22:00 Dose: 30 units Insulin Human Regular (Humulin R Med) 0 units SC [facility]; Protocol Last Admin: 12/08/18 22:00 Dose: Not Given Ketorolac Tromethamine (Toradol) 15 mg IVP Q6 PRN PRN Reason: Pain, severe (8-10) Last Admin: 12/08/18 22:02 Dose: 15 mg Ondansetron HCl (Zofran Tab) 4 mg PO Q6H PRN PRN Reason: Nausea/Vomiting - Labs Labs: 12/07/18 12:30 12/07/18 12:30 PT 12.0 SECONDS (9.4-12.5) 12/07/18 12:30 INR 1.06 12/07/18 12:30 APTT 55.0 Seconds (26.9-38.3) H 12/07/18 12:30 - Additional Findings Additional findings: - Constitutional Appears: Non-toxic, No Acute Distress - Head Exam Head Exam: ATRAUMATIC, NORMAL INSPECTION, NORMOCEPHALIC - Eye Exam Eye Exam: EOMI - ENT Exam ENT Exam: Mucous Membranes Moist - Respiratory Exam Respiratory Exam: NORMAL BREATHING PATTERN. absent: Respiratory Distress - Cardiovascular Exam Cardiovascular Exam: absent: Tachycardia - GI/Abdominal Exam GI & Abdominal Exam: Soft, Tenderness, Normal Bowel Sounds. 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 Arnie Capps PGY1
[2018-12-09] MEDS: Insulin Reg-MEDIUM-Coverage SC SCH ×4 (12:01→21:10)
[2018-12-09 12:37] LABS: BASO # 0.01 K/mm3 (0.0-2.0); BASO % 0.2 % (0.0-3.0); EOS # 0.1 (0.0-0.7); EOS % 2.3 % (1.5-5.0); HEMOGLOBIN 13.3 g/dL (12.0-16.0); LYMPH # 3.1 (1.2-3.4); LYMPH % 58.3 % (22.0-35.0); MEAN CELL VOLUME 84.1 fl (80.0-105.0); MEAN CORPUSCULAR HEMOGLOBIN 28.5 pg (25.0-35.0); MEAN CORPUSCULAR HGB CONC 33.9 g/dl (31.0-37.0); MEAN PLATELET VOLUME 11.3 fl (7.0-11.0); MONO # 0.2 (0.1-0.6); MONO % 3.8 % (1.0-6.0); RBC 4.66 10^6/uL (3.5-6.1); RED CELL DISTRIBUTION WIDTH 12.8 % (11.5-14.5); WHITE BLOOD COUNT 5.3 10^3/uL (4.5-11.0)
[2018-12-09 12:56] LABS: ALB/GLOB RATIO 1.1 (1.1-1.8); ALBUMIN 3.9 g/dL (3.0-4.8); ALT/SGPT 18 U/L (7-56); AST/SGOT 32 U/L (14-36); BLOOD UREA NITROGEN 24 mg/dL (7-21); CALCIUM 9.6 mg/dL (8.4-10.5); GFR NON-AFRICAN AMERICAN > 60
[2018-12-09] MEDS ORDERED: Lactated Ringer's 1,000 ML IV SCH (14:00)
--- NOTE | 2018-12-09 16:06 | CP.PCM.PN ---
<Glynn Zelaya - Last Filed: 12/09/18 16:09> Subjective - Date & Time of Evaluation Date of Evaluation: 12/09/18 Time of Evaluation: 10:00 - Subjective Subjective: Glynn Zelaya DO PGY1 - Internal Medicine Brineyard Supervisor - Hospitalist Progress Note Patient was seen and evaluated at bedside this morning, No acute events overnight. Minimal abd pain, tolerating diet well, no n/v/d/c, no fevers, chills Tolerates diet well. Patient aware surgical intervention is planned for this Friday Objective - Vital Signs/Intake and Output Vital Signs (last 24 hours): Temp Pulse Resp BP Pulse Ox 98.2 F 18 L 66 H 120/75 99 12/09/18 14:00 12/09/18 14:00 12/09/18 14:00 12/09/18 14:00 12/09/18 14:00 Intake and Output: 12/09/18 12/09/18 06:59 18:59 Intake Total 180 Balance 180 - Medications Medications: Current Medications Aspirin (Ecotrin) 81 mg PO DAILY [facility] Last Admin: 12/06/18 09:56 Dose: 81 mg Enoxaparin Sodium (Lovenox) 40 mg SC DAILY [facility]; Protocol Last Admin: 12/09/18 09:29 Dose: 40 mg Erythromycin (Erythromycin) 1,000 mg PO ONCE ONE; Protocol Stop: 12/10/18 12:31 Famotidine (Pepcid) 40 mg PO [facility] Last Admin: 12/08/18 22:01 Dose: 40 mg Lactated Ringer's (Lactated Ringer's) 1,000 mls @ 75 mls/hr IV .[id number] [facility] Last Admin: 12/09/18 15:02 Dose: 75 mls/hr Insulin Detemir (Levemir) 30 unit SC [facility] Last Admin: 12/08/18 22:00 Dose: 30 units Insulin Human Regular (Humulin R Med) 0 units SC [facility]; Protocol Last Admin: 12/09/18 12:03 Dose: Not Given Ketorolac Tromethamine (Toradol) 15 mg IVP Q6 PRN PRN Reason: Pain, severe (8-10) Last Admin: 12/08/18 22:02 Dose: 15 mg Neomycin Sulfate (Neomycin Tab) 1,000 mg PO ONCE ONE Stop: 12/10/18 12:31 Neomycin Sulfate (Neomycin Tab) 1,000 mg PO ONCE ONE Stop: 12/10/18 13:31 Neomycin Sulfate (Neomycin Tab) 1,000 mg PO ONCE ONE Stop: 12/10/18 22:31 Ondansetron HCl (Zofran Tab) 4 mg PO Q6H PRN PRN Reason: Nausea/Vomiting Sodium Cl/Sod Bicarb/Potass Cl/PEG (Nulytely With Flavor Packs Sis) 4,000 ml PO ONCE ONE Stop: 12/09/18 18:01 - Labs Labs: 12/09/18 12:00 12/09/18 12:00 PT 12.0 SECONDS (9.4-12.5) 12/07/18 12:30 INR 1.06 12/07/18 12:30 APTT 55.0 Seconds (26.9-38.3) H 12/07/18 12:30 - Constitutional Appears: Well, Non-toxic, No Acute Distress - Head Exam Head Exam: ATRAUMATIC, NORMOCEPHALIC - Eye Exam Eye Exam: EOMI, PERRL - Respiratory Exam Respiratory Exam: Clear to Ausculation Bilateral, NORMAL BREATHING PATTERN - Cardiovascular Exam Cardiovascular Exam: RRR, +S1, +S2 - GI/Abdominal Exam GI & Abdominal Exam: Soft, Tenderness RLQ- Deep Palpation, Normal Bowel Sounds - Extremities Exam Extremities Exam: Normal Capillary Refill Additional comments: 2+ distal pulses LE bilaterally - Neurological Exam Neurological Exam: Alert, Awake, Oriented x3 Assessment and Plan - Assessment and Plan (Free Text) Assessment: 63F w/ a PMH of HTN, DM, Ovarian CA s/p total abdominal hysterectomy, oophrectomy, salpingectomy presented to [facility] [place]05 w/ c/o of RLQ pain. PLAN: RLQ Abdominal Pain MRI Abdomen Pelvis w/ IV CON : thick walled loculated lesion in the R pericolic gutter - appendiceal mucocele Laproscopic ExLap w/ possible colon resection on 12/11 as per surgical team Bowel Prep starting today as per surgery Toradol 15 Q6PRN Mild Pain Zofran 4 Q6PRN Nausea General Surgery Following - Dr. Davidson Heme/Onc Following - Dr. 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 is to follow up w/ PMD Dr. Smith and [facility] on December 25 at 1:30pm upon discharge Patient was seen, examined, and discussed w/ attending Dr. Karen Zelaya DO PGY1 - Internal Medicine Brineyard Supervisor - Hospitalist Progress Note <Karen Zelaya R - Last Filed: 12/09/18 17:06> Objective - Vital Signs/Intake and Output Vital Signs (last 24 hours): Temp Pulse Resp BP Pulse Ox 98.2 F 18 L 66 H 120/75 99 12/09/18 14:00 12/09/18 14:00 12/09/18 14:00 12/09/18 14:00 12/09/18 14:00 Intake and Output: 12/09/18 12/09/18 06:59 18:59 Intake Total 180 Balance 180 - Medications Medications: Current Medications Aspirin (Ecotrin) 81 mg PO DAILY [facility] Last Admin: 12/06/18 09:56 Dose: 81 mg Enoxaparin Sodium (Lovenox) 40 mg SC DAILY [facility]; Protocol Last Admin: 12/09/18 09:29 Dose: 40 mg Erythromycin (Erythromycin) 1,000 mg PO ONCE ONE; Protocol Stop: 12/10/18 12:31 Famotidine (Pepcid) 40 mg PO [facility] Last Admin: 12/08/18 22:01 Dose: 40 mg Lactated Ringer's (Lactated Ringer's) 1,000 mls @ 75 mls/hr IV .[id number] [facility] Last Admin: 12/09/18 15:02 Dose: 75 mls/hr Insulin Detemir (Levemir) 30 unit SC [facility] Last Admin: 12/08/18 22:00 Dose: 30 units Insulin Human Regular (Humulin R Med) 0 units SC [facility]; Protocol Last Admin: 12/09/18 12:03 Dose: Not Given Ketorolac Tromethamine (Toradol) 15 mg IVP Q6 PRN PRN Reason: Pain, severe (8-10) Last Admin: 12/08/18 22:02 Dose: 15 mg Neomycin Sulfate (Neomycin Tab) 1,000 mg PO ONCE ONE Stop: 12/10/18 12:31 Neomycin Sulfate (Neomycin Tab) 1,000 mg PO ONCE ONE Stop: 12/10/18 13:31 Neomycin Sulfate (Neomycin Tab) 1,000 mg PO ONCE ONE Stop: 12/10/18 22:31 Ondansetron HCl (Zofran Tab) 4 mg PO Q6H PRN PRN Reason: Nausea/Vomiting Sodium Cl/Sod Bicarb/Potass Cl/PEG (Nulytely With Flavor Packs Sis) 4,000 ml PO ONCE ONE Stop: 12/09/18 18:01 - Labs Labs: 12/09/18 12:00 12/09/18 12:00 PT 12.0 SECONDS (9.4-12.5) 12/07/18 12:30 INR 1.06 12/07/18 12:30 APTT 55.0 Seconds (26.9-38.3) H 12/07/18 12:30 Attending/Attestation - Attestation I have personally seen and examined this patient.: Yes I have fully participated in the care of the patient.: Yes I have reviewed all pertinent clinical information, including history, physical exam and plan: Yes Notes (Text): Patient seen and examined by me with resident at approximately 11:40AM on . Case including HPI, physical exam, and assessment and plan discussed with resident. Agree with above with following additions/corrections. Patient is a 63-year-old female with past medical history significant for mucous ovarian carcinoma with VALERIANO-BSO 2018, type 2 diabetes, and hypertension that presented to the emergency room with right-sided abdominal pain. Patient states she is feeling a little better. States the pain is still there but the intensity has improved. Pain medications are helping. She denies nausea or vomiting. Patient is tolerating diet. No diarrhea or constipation. Patient denies chest pain or palpitations. No headaches or dizziness. No dysuria. No fevers or chills. Physical exam: General: Awake and alert sitting up chair in no acute distress. HEENT: Normocephalic, atraumatic. Extraocular muscles intact, pupils equal and reactive, no scleral icterus. Oropharynx is pink and moist. No pharyngeal erythema or exudate appreciated. Neck is supple. Cardiovascular: Normal rhythm. Normal S1 and S2. No murmurs, rubs, or gallops appreciated Pulmonary: Normal respiratory effort. No rhonchi, rales, or wheezing appreciated. Gastrointestinal: Soft, nondistended. Positive right sided abdominal tenderness. Positive bowel sounds all 4 quadrants. No guarding. Musculoskeletal: Moves all extremities. No calf tenderness. No edema. Central nervous system: AAOx3. Dermatologic: Skin warm and dry. Assessment and plan: Patient is a 63-year-old female with past medical history significant for mucous ovarian carcinoma with VALERIANO-BSO 2018, type 2 diabetes, and hypertension that presented to the emergency room with right-sided abdominal pain. 1. Right sided abdominal pain. Appendiceal mucocele. Surgical team following, recommendations appreciated. Patient for OR on 12/11/18. Hem/onc recommendations appreciated. Continue with pain management. Pelvic MRI per radiologist showed a cystic loculated lesion in the right paracolic gutter adjacent to the cecum; measures 43 mm AP by 15 mm wide by 72 mm in length; considering the location this could represent an appendiceal mucocele. Abdominal MRI per radiologist shows negative study. 2. History of mucous ovarian carcinoma status post VALERIANO-BSO. Hem/onc recommendations appreciated. Patient will need close acupressurist/onc follow up as outpatient. CA-125 antigen elevated at 49.6. 3. Type 2 diabetes. Continue insulin sliding scale. Continue Levemir. Continue to monitor Accu-Cheks. Hemoglobin A1c 5.2. 4. History of hypertension. Controlled with diet. Continue monitor off medications. 5. GI/DVT prophylaxis. Pepcid/Lovenox. 6. Patient is a full code. Case discussed in detail with the patient and patient's daughter at bedside regarding current diagnosis and treatment plan. All questions answered.
[2018-12-09 17:15] LABS: INR 1.1; PARTIAL THROMBOPLASTIN TIME 47.7 Seconds (26.9-38.3); PROTHROMBIN TIME 12.2 SECONDS (9.4-12.5)
[2018-12-09] MEDS ORDERED: NuLYTELY (NACL/NAHCO3/KCL/PEG) 4L PO ONE (18:00)
[2018-12-10 08:10] LABS: INR 1.1; PARTIAL THROMBOPLASTIN TIME 43.2 Seconds (26.9-38.3); PROTHROMBIN TIME 12.4 SECONDS (9.4-12.5)
[2018-12-10 08:16] LABS: ALB/GLOB RATIO 1.1 (1.1-1.8); ALBUMIN 3.6 g/dL (3.0-4.8); ALT/SGPT 27 U/L (7-56); AST/SGOT 33 U/L (14-36); BLOOD UREA NITROGEN 16 mg/dL (7-21); CALCIUM 9.8 mg/dL (8.4-10.5); GFR NON-AFRICAN AMERICAN > 60
[2018-12-10 08:20] LABS: BASO # 0.02 K/mm3 (0.0-2.0); BASO % 0.4 % (0.0-3.0); EOS # 0.1 (0.0-0.7); EOS % 2.6 % (1.5-5.0); HEMOGLOBIN 12.7 g/dL (12.0-16.0); LYMPH # 2.4 (1.2-3.4); LYMPH % 52.3 % (22.0-35.0); MEAN CELL VOLUME 83.7 fl (80.0-105.0); MEAN CORPUSCULAR HEMOGLOBIN 28.3 pg (25.0-35.0); MEAN CORPUSCULAR HGB CONC 33.9 g/dl (31.0-37.0); MEAN PLATELET VOLUME 11.3 fl (7.0-11.0); MONO # 0.3 (0.1-0.6); MONO % 6.8 % (1.0-6.0); RBC 4.48 10^6/uL (3.5-6.1); RED CELL DISTRIBUTION WIDTH 12.8 % (11.5-14.5); WHITE BLOOD COUNT 4.6 10^3/uL (4.5-11.0)
[2018-12-10] MEDS: Insulin Reg-MEDIUM-Coverage SC SCH ×4 (08:23→21:32)
--- NOTE | 2018-12-10 11:14 | CP.PCM.PN ---
Subjective - Date & Time of Evaluation Date of Evaluation: 12/10/18 Time of Evaluation: 11:12 - Subjective Subjective: General Surgery Progress Note for Dr. Gaitan Patient was seen and evaluated at bedside this morning. No new complaints. No acute events overnight. No new complaints. Denies f/c, n/v/d, SOB, CP, or urinary symptoms. Objective - Vital Signs/Intake and Output Vital Signs (last 24 hours): Temp Pulse Resp BP Pulse Ox 97.6 F 58 L 16 137/79 98 12/10/18 06:00 12/10/18 06:00 12/10/18 06:00 12/10/18 06:00 12/10/18 06:00 Intake and Output: 12/10/18 12/10/18 06:59 18:59 Intake Total 720 Balance 720 - Medications Medications: Current Medications Aspirin (Ecotrin) 81 mg PO DAILY [facility] Last Admin: 12/06/18 09:56 Dose: 81 mg Enoxaparin Sodium (Lovenox) 40 mg SC DAILY [facility]; Protocol Last Admin: 12/09/18 09:29 Dose: 40 mg Erythromycin (Erythromycin) 1,000 mg PO ONCE ONE; Protocol Stop: 12/10/18 12:31 Erythromycin (Erythromycin) 1,000 mg PO ONCE ONE; Protocol Stop: 12/10/18 13:31 Erythromycin (Erythromycin) 1,000 mg PO ONCE ONE; Protocol Stop: 12/10/18 22:31 Famotidine (Pepcid) 40 mg PO [facility] Last Admin: 12/09/18 21:10 Dose: 40 mg Lactated Ringer's (Lactated Ringer's) 1,000 mls @ 75 mls/hr IV .[id number] [facility] Last Admin: 12/09/18 15:02 Dose: 75 mls/hr Insulin Detemir (Levemir) 30 unit SC [facility] Last Admin: 12/08/18 22:00 Dose: 30 units Insulin Human Regular (Humulin R Med) 0 units SC [facility]; Protocol Last Admin: 12/10/18 08:23 Dose: Not Given Ketorolac Tromethamine (Toradol) 15 mg IVP Q6 PRN PRN Reason: Pain, severe (8-10) Last Admin: 12/08/18 22:02 Dose: 15 mg Neomycin Sulfate (Neomycin Tab) 1,000 mg PO ONCE ONE Stop: 12/10/18 12:31 Neomycin Sulfate (Neomycin Tab) 1,000 mg PO ONCE ONE Stop: 12/10/18 13:31 Neomycin Sulfate (Neomycin Tab) 1,000 mg PO ONCE ONE Stop: 12/10/18 22:31 Ondansetron HCl (Zofran Tab) 4 mg PO Q6H PRN PRN Reason: Nausea/Vomiting - Labs Labs: 12/10/18 07:30 12/10/18 07:30 PT 12.4 SECONDS (9.4-12.5) 12/10/18 07:30 INR 1.10 12/10/18 07:30 APTT 43.2 Seconds (26.9-38.3) H 12/10/18 07:30 - Additional Findings Additional findings: - Constitutional Appears: Non-toxic, No Acute Distress - Head Exam Head Exam: ATRAUMATIC, NORMAL INSPECTION, NORMOCEPHALIC - Eye Exam Eye Exam: EOMI - ENT Exam ENT Exam: Mucous Membranes Moist - Respiratory Exam Respiratory Exam: NORMAL BREATHING PATTERN. absent: Respiratory Distress - Cardiovascular Exam Cardiovascular Exam: absent: Tachycardia - GI/Abdominal Exam GI & Abdominal Exam: Soft, Tenderness, Normal Bowel Sounds. 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 Arnie Capps PGY1
[2018-12-10] MEDS ORDERED: SODIUM CHLORIDE 0.9% IVPB ONE (12:30)
[2018-12-10] MEDS ORDERED: ERYthromycin Base 250 MG DR Cap PO ONE ×3 (12:30→22:30)
[2018-12-10] MEDS ORDERED: ERYTHROMYCIN IVPB ONE (12:30)
--- NOTE | 2018-12-10 16:10 | CP.PCM.PN ---
<Glynn Zelaya - Last Filed: 12/10/18 16:05> Subjective - Date & Time of Evaluation Date of Evaluation: 12/10/18 Time of Evaluation: 10:00 - Subjective Subjective: Glynn Zelaya DO PGY1 - Internal Medicine Medical Engineer - Hospitalist Progress Note Patient was seen and evaluated this AM at bedside, No acute events reported overnight. No complaints voiced at bedside this morning. Afebrile overnight. Objective - Vital Signs/Intake and Output Vital Signs (last 24 hours): Temp Pulse Resp BP Pulse Ox 98.2 F 58 L 18 119/62 100 12/10/18 14:00 12/10/18 14:00 12/10/18 14:00 12/10/18 14:00 12/10/18 14:00 Intake and Output: 12/10/18 12/10/18 06:59 18:59 Intake Total 720 Balance 720 - Medications Medications: Current Medications Aspirin (Ecotrin) 81 mg PO DAILY [facility] Last Admin: 12/06/18 09:56 Dose: 81 mg Enoxaparin Sodium (Lovenox) 40 mg SC DAILY [facility]; Protocol Last Admin: 12/09/18 09:29 Dose: 40 mg Erythromycin (Erythromycin) 1,000 mg PO ONCE ONE; Protocol Stop: 12/10/18 22:31 Famotidine (Pepcid) 40 mg PO [facility] Last Admin: 12/09/18 21:10 Dose: 40 mg Lactated Ringer's (Lactated Ringer's) 1,000 mls @ 75 mls/hr IV .[id number] [facility] Last Admin: 12/09/18 15:02 Dose: 75 mls/hr Insulin Detemir (Levemir) 30 unit SC [facility] Last Admin: 12/08/18 22:00 Dose: 30 units Insulin Human Regular (Humulin R Med) 0 units SC [facility]; Protocol Last Admin: 12/10/18 12:33 Dose: Not Given Ketorolac Tromethamine (Toradol) 15 mg IVP Q6 PRN PRN Reason: Pain, severe (8-10) Last Admin: 12/08/18 22:02 Dose: 15 mg Neomycin Sulfate (Neomycin Tab) 1,000 mg PO ONCE ONE Stop: 12/10/18 22:31 Ondansetron HCl (Zofran Tab) 4 mg PO Q6H PRN PRN Reason: Nausea/Vomiting - Labs Labs: 12/10/18 07:30 12/10/18 07:30 PT 12.4 SECONDS (9.4-12.5) 12/10/18 07:30 INR 1.10 12/10/18 07:30 APTT 43.2 Seconds (26.9-38.3) H 12/10/18 07:30 - Constitutional Appears: Well, Non-toxic, No Acute Distress - Head Exam Head Exam: ATRAUMATIC, NORMOCEPHALIC - Eye Exam Eye Exam: EOMI, PERRL - Respiratory Exam Respiratory Exam: Clear to Ausculation Bilateral, NORMAL BREATHING PATTERN - Cardiovascular Exam Cardiovascular Exam: RRR, +S1, +S2 - GI/Abdominal Exam GI & Abdominal Exam: Soft, Tenderness RLQ- Deep Palpation, Normal Bowel Sounds - Extremities Exam Extremities Exam: Normal Capillary Refill Additional comments: 2+ distal pulses LE bilaterally - Neurological Exam Neurological Exam: Alert, Awake, Oriented x3 Assessment and Plan - Assessment and Plan (Free Text) Assessment: 63F w/ a PMH of HTN, DM, Ovarian CA s/p total abdominal hysterectomy, oophrectomy, salpingectomy presented to [facility] [place] on 12/05 w/ c/o of RLQ pain. PLAN: Appendiceal Mucocele 12/07 MRI Abdomen Pelvis w/ IV CON : thick walled loculated lesion in the R pericolic gutter - appendiceal mucocele Laproscopic ExLap w/ possible colon resection on 12/11 as per surgical team CLD Yesterday and Today; NPO past midnight tonight; Bowel prep started yesterday Will hold Lovenox Toradol 15 Q6PRN Mild Pain Zofran 4 Q6PRN Nausea General Surgery Following - Dr. Davidson Heme/Onc Following - Dr. 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 is to follow up w/ PMD Dr. Smith and [facility] on December 25 at 1:30pm upon discharge Patient was seen, examined, and discussed w/ attending Dr. Karen Zelaya DO PGY1 - Internal Medicine Medical Engineer - Hospitalist Progress Note <Karen Zelaya R - Last Filed: 12/11/18 07:51> Objective - Vital Signs/Intake and Output Vital Signs (last 24 hours): Temp Pulse Resp BP Pulse Ox 98.2 F 77 20 126/84 98 12/11/18 07:04 12/11/18 07:04 12/11/18 07:04 12/11/18 07:04 12/11/18 07:04 Intake and Output: 12/11/18 12/11/18 06:59 18:59 Intake Total 480 Balance 480 - Medications Medications: Current Medications Aspirin (Ecotrin) 81 mg PO DAILY [facility] Last Admin: 12/06/18 09:56 Dose: 81 mg Enoxaparin Sodium (Lovenox) 40 mg SC DAILY [facility]; Protocol Last Admin: 12/09/18 09:29 Dose: 40 mg Famotidine (Pepcid) 40 mg PO [facility] Last Admin: 12/10/18 21:39 Dose: 40 mg Lactated Ringer's (Lactated Ringer's) 1,000 mls @ 75 mls/hr IV .[id number] [facility] Last Admin: 12/09/18 15:02 Dose: 75 mls/hr Insulin Detemir (Levemir) 30 unit SC [facility] Last Admin: 12/10/18 21:33 Dose: Not Given Insulin Human Regular (Humulin R Med) 0 units SC [facility]; Protocol Last Admin: 12/10/18 21:32 Dose: Not Given Ketorolac Tromethamine (Toradol) 15 mg IVP Q6 PRN PRN Reason: Pain, severe (8-10) Last Admin: 12/08/18 22:02 Dose: 15 mg Ondansetron HCl (Zofran Tab) 4 mg PO Q6H PRN PRN Reason: Nausea/Vomiting - Labs Labs: 12/10/18 07:30 12/10/18 07:30 PT 12.4 SECONDS (9.4-12.5) 12/10/18 07:30 INR 1.10 12/10/18 07:30 APTT 43.2 Seconds (26.9-38.3) H 12/10/18 07:30 Attending/Attestation - Attestation I have personally seen and examined this patient.: Yes I have fully participated in the care of the patient.: Yes I have reviewed all pertinent clinical information, including history, physical exam and plan: Yes Notes (Text): Patient seen and examined by me with resident at approximately 11:20AM on 12/10/18. Case including HPI, physical exam, and assessment and plan discussed with resident. Agree with above with following additions/corrections. Patient is a 63-year-old female with past medical history significant for mucous ovarian carcinoma with VALERIANO-BSO 2018, type 2 diabetes, and hypertension that presented to the emergency room with right-sided abdominal pain. Patient states she is feeling better. Patient states her right abdominal pain is still there but improved and is not requiring pain medications. No nausea or vomiting. Patient tolerating diet. No diarrhea or constipation. Patient denies chest pain or palpitations. No headaches or dizziness. No dysuria. No fevers or chills. Physical exam: General: Awake and alert sitting up chair in no acute distress. HEENT: Normocephalic, atraumatic. Extraocular muscles intact, pupils equal and reactive, no scleral icterus. Oropharynx is pink and moist. No pharyngeal erythema or exudate appreciated. Neck is supple. Cardiovascular: Normal rhythm. Normal S1 and S2. No murmurs, rubs, or gallops appreciated Pulmonary: Normal respiratory effort. No rhonchi, rales, or wheezing appreciated. Gastrointestinal: Soft, nondistended. Positive right sided abdominal tenderness. Positive bowel sounds all 4 quadrants. No guarding. Musculoskeletal: Moves all extremities. No calf tenderness. No edema. Central nervous system: AAOx3. Dermatologic: Skin warm and dry. Assessment and plan: Patient is a 63-year-old female with past medical history significant for mucous ovarian carcinoma with VALERIANO-BSO 2018, type 2 diabetes, and hypertension that presented to the emergency room with right-sided abdominal pain. 1. Right sided abdominal pain. Appendiceal mucocele. Surgical team following, recommendations appreciated. Patient for OR tomorrow. Hem/onc recommendations ap preciated. Pelvic MRI per radiologist showed a cystic loculated lesion in the right paracolic gutter adjacent to the cecum; measures 43 mm AP by 15 mm wide by 72 mm in length; considering the location this could represent an appendiceal mucocele. Abdominal MRI per radiologist shows negative study. 2. History of mucous ovarian carcinoma status post VALERIANO-BSO. Hem/onc recommendations appreciated. Patient will need close investigation officer/onc follow up as outpatient. CA-125 antigen elevated at 49.6. 3. Type 2 diabetes. Continue insulin sliding scale. Continue Levemir. Continue to monitor Accu-Cheks. Hemoglobin A1c 5.2. 4. History of hypertension. Controlled with diet. Continue to monitor off medications. 5. GI/DVT prophylaxis. Pepcid/Lovenox. 6. Patient is a full code. Case discussed in detail with the patient regarding current diagnosis and treatment plan. All questions answered.
[2018-12-10] MEDS: Insulin Detemir 100 units/ml Vial (Levemir) SC SCH (21:33)
[2018-12-11] MEDS ORDERED: Bupivacaine 0.5% 50 ML IJ ONE (07:15)
[2018-12-11] MEDS ORDERED: Liquid Adhesive TOP ONE (07:15)
[2018-12-11] MEDS ORDERED: CeFAZolin 1 gm in NS 100ml IVPB ONE (08:15)
[2018-12-11] MEDS ORDERED: metroNIDAZOLE IV 500 mg/100 ml 0 MG/0 ML BAG ONE (08:22)
[2018-12-11] MEDS ORDERED: Bupivacaine Liposomal Inj 20 ml ONE (09:27)
--- NOTE | 2018-12-11 09:56 | PCM.SURG1 ---
Surgeon's Initial Post Op Note - Surgeon's Notes Surgeon: Dr Gaitan Line O Scribe Operator: Dr Lester PGY4, Dr Cade PGY3, Dr Ashton PGY2 Type of Anesthesia: General Endo Anesthesia Administered By: Dr Conley Pre-Operative Diagnosis: RLQ mass Operative Findings: RLQ mass. Omental implants. Pelvic implants Post-Operative Diagnosis: as above Operation Performed: Exploratory Laparotomy. Appendectomy w/ excision of RLQ- retroperitoneal mass. Extensive Lysis of Adhesions. Partial Omentectomy. Removal of Pelvic implants Specimen/Specimens Removed: omental implants. greater omentum. appendix with retroperitoneal mass. pelvic implants Estimated Blood Loss: EBL {In ML}: 25 Blood Products Given: N/A Drains Used: No Drains Post-Op Condition: Good Date of Surgery/Procedure: 12/11/18 Time of Surgery/Procedure: 10:08
[2018-12-11] MEDS ORDERED: HYDROmorphone 0.5 mg/0.5 ml ISec IVP PRN ×2 (10:13→10:18)
[2018-12-11] MEDS ORDERED: Sodium Chloride 0.9% 1,000 ML IV SCH (10:15)
[2018-12-11] MEDS ORDERED: HYDROmorphone 0.5 mg/0.5 ml ISec IVP ONE (10:50)
[2018-12-11] MEDS ORDERED: HYDROmorphone 0.5 mg/0.5 ml ISec ONE (10:52)
[2018-12-11] MEDS: Insulin Reg-MEDIUM-Coverage SC SCH ×3 (12:57→21:14)
[2018-12-11] MEDS: ceFAZolin IV 2 gm in Dextrose 2 GM/50 ML BAG IVPB SCH ×2 (13:45→21:08)
[2018-12-11] MEDS: Oxycodone/Acetaminophen 5/325 mg Tab PO PRN (21:02)
[2018-12-11] MEDS: Insulin Detemir 100 units/ml Vial (Levemir) SC SCH (21:15)
--- NOTE | 2018-12-11 22:24 | CP.PCM.PN ---
<Glynn Zelaya - Last Filed: 12/11/18 22:21> Subjective - Date & Time of Evaluation Date of Evaluation: 12/11/18 Time of Evaluation: 22:21 - Subjective Subjective: Glynn Zelaya DO PGY1 - Internal Medicine Upholstery Technician - Hospitalist Progress Note Patient was seen and examined this afternoon post operatively. Patient complaining of mild abdominal pains however denies fevers, shortness of breath, chest pain at this time. Objective - Vital Signs/Intake and Output Vital Signs (last 24 hours): Temp Pulse Resp BP Pulse Ox 98.4 F 73 20 141/73 100 12/11/18 21:32 12/11/18 21:32 12/11/18 21:32 12/11/18 21:32 12/11/18 21:32 Intake and Output: 12/11/18 12/12/18 18:59 06:59 Intake Total 0 Balance 0 - Medications Medications: Current Medications Aspirin (Ecotrin) 81 mg PO DAILY [facility] Last Admin: 12/06/18 09:56 Dose: 81 mg Enoxaparin Sodium (Lovenox) 40 mg SC DAILY [facility]; Protocol Last Admin: 12/09/18 09:29 Dose: 40 mg Famotidine (Pepcid) 40 mg PO HS [facility] Last Admin: 12/11/18 21:02 Dose: 40 mg Hydromorphone HCl (Dilaudid) 0.5 mg IVP Q15M PRN PRN Reason: Other Lactated Ringer's (Lactated Ringer's) 1,000 mls @ 75 mls/hr IV .[id number] [facility] Last Admin: 12/09/18 15:02 Dose: 75 mls/hr Cefazolin Sodium/Dextrose (Ancef Iv 2 Gm Duplex) 2 gm in 50 mls @ 50 mls/hr IVPB Q8 [facility]; Protocol Stop: 12/12/18 06:59 Last Admin: 12/11/18 21:08 Dose: 50 mls/hr Insulin Detemir (Levemir) 30 unit SC HS [facility] Last Admin: 12/11/18 21:15 Dose: Not Given Insulin Human Regular (Humulin R Med) 0 units SC ACHS [facility]; Protocol Last Admin: 12/11/18 21:14 Dose: Not Given Ondansetron HCl (Zofran Inj) 4 mg IVP Q6 PRN PRN Reason: Nausea/Vomiting Last Admin: 12/11/18 12:56 Dose: 4 mg Oxycodone/Acetaminophen (Percocet 5/325 Mg Tab) 1 tab PO Q6H PRN PRN Reason: Pain, moderate (4-7) Stop: 12/14/18 14:24 Last Admin: 12/11/18 21:02 Dose: 1 tab - Labs Labs: 12/10/18 07:30 12/10/18 07:30 PT 12.4 SECONDS (9.4-12.5) 12/10/18 07:30 INR 1.10 12/10/18 07:30 APTT 43.2 Seconds (26.9-38.3) H 12/10/18 07:30 - Constitutional Appears: Well, Non-toxic, No Acute Distress - Head Exam Head Exam: ATRAUMATIC, NORMOCEPHALIC - Eye Exam Eye Exam: EOMI, Normal appearance, PERRL. absent: Scleral icterus - Respiratory Exam Respiratory Exam: Clear to Ausculation Bilateral, NORMAL BREATHING PATTERN - Cardiovascular Exam Cardiovascular Exam: RRR, +S1, +S2 - GI/Abdominal Exam GI & Abdominal Exam: Distended, Soft, Tenderness Additional comments: Dressing CDI Right Abdomen - Psychiatric Exam Psychiatric exam: Normal Affect, Normal Mood - Skin Skin Exam: Dry, Intact, Warm Assessment and Plan - Assessment and Plan (Free Text) Assessment: 63F w/ a PMH of HTN, DM, Ovarian CA s/p total abdominal hysterectomy, oophrectomy, salpingectomy presented to [facility] on 12/05 w/ c/o of RLQ pain. PLAN: Appendiceal Mucocele 12/07 MRI Abdomen Pelvis w/ IV CON : thick walled loculated lesion in the R pericolic gutter - appendiceal mucocele Exploratory laparotomy w/ appendectomy and RLQ mass excision and omentectomy Analgesia as per surgery Further reccs as per surgery Zofran 4 Q6PRN Nausea General Surgery Following - Dr. Davidson Heme/Onc Following - Dr. 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 is to follow up w/ PMD Dr. Smith and [facility] on December 25 at 1:30pm upon discharge Patient was seen, examined, and discussed w/ attending Dr. Karen Zelaya DO PGY1 - Internal Medicine Upholstery Technician - Hospitalist Progress Note <Karen Zelaya R - Last Filed: 12/12/18 07:36> Objective - Vital Signs/Intake and Output Vital Signs (last 24 hours): Temp Pulse Resp BP Pulse Ox 98.4 F 73 20 141/73 100 12/11/18 21:32 12/11/18 21:32 12/11/18 21:32 12/11/18 21:32 12/11/18 21:32 Intake and Output: 12/12/18 12/12/18 06:59 18:59 Intake Total 1380 Balance 1380 - Medications Medications: Current Medications Aspirin (Ecotrin) 81 mg PO DAILY [facility] Last Admin: 12/06/18 09:56 Dose: 81 mg Enoxaparin Sodium (Lovenox) 40 mg SC DAILY [facility]; Protocol Last Admin: 12/09/18 09:29 Dose: 40 mg Famotidine (Pepcid) 40 mg PO HS [facility] Last Admin: 12/11/18 21:02 Dose: 40 mg Hydromorphone HCl (Dilaudid) 0.5 mg IVP Q15M PRN PRN Reason: Other Lactated Ringer's (Lactated Ringer's) 1,000 mls @ 75 mls/hr IV .[id number] [facility] Last Admin: 12/09/18 15:02 Dose: 75 mls/hr Insulin Detemir (Levemir) 30 unit SC [facility] Last Admin: 12/11/18 21:15 Dose: Not Given Insulin Human Regular (Humulin R Med) 0 units SC [facility]; Protocol Last Admin: 12/11/18 21:14 Dose: Not Given Ondansetron HCl (Zofran Inj) 4 mg IVP Q6 PRN PRN Reason: Nausea/Vomiting Last Admin: 12/11/18 12:56 Dose: 4 mg Oxycodone/Acetaminophen (Percocet 5/325 Mg Tab) 1 tab PO Q6H PRN PRN Reason: Pain, moderate (4-7) Stop: 12/14/18 14:24 Last Admin: 12/12/18 06:09 Dose: 1 tab - Labs Labs: 12/10/18 07:30 12/10/18 07:30 PT 12.4 SECONDS (9.4-12.5) 12/10/18 07:30 INR 1.10 12/10/18 07:30 APTT 43.2 Seconds (26.9-38.3) H 12/10/18 07:30 Attending/Attestation - Attestation I have personally seen and examined this patient.: Yes I have fully participated in the care of the patient.: Yes I have reviewed all pertinent clinical information, including history, physical exam and plan: Yes Notes (Text): Patient seen and examined by me with resident at approximately 2:05PM on 12/11/18. Case including HPI, physical exam, and assessment and plan discussed with resident. Agree with above with following additions/corrections. Patient is a 63-year-old female with past medical history significant for mucous ovarian carcinoma with VALERIANO-BSO 2018, type 2 diabetes, and hypertension that presented to the emergency room with right-sided abdominal pain. Patient is s/ OR. Patient states she is feeling ok. Patient is having some abdominal pain at incision site. Also with a little nausea and vomiting. Patient also complains of a little discomfort in her throat s/p intubation for surgery. Patient denies chest pain or palpitations. No headaches or dizziness. No dysuria. No fevers or chills. Physical exam: General: Awake and alert sitting up chair in no acute distress. HEENT: Normocephalic, atraumatic. Extraocular muscles intact, pupils equal and reactive, no scleral icterus. Oropharynx is pink and moist. No pharyngeal erythema or exudate appreciated. Neck is supple. Cardiovascular: Normal rhythm. Normal S1 and S2. No murmurs, rubs, or gallops appreciated Pulmonary: Normal respiratory effort. No rhonchi, rales, or wheezing appreciated. Gastrointestinal: Soft, nondistended. Positive right sided abdominal tenderness. Positive bowel sounds all 4 quadrants. No guarding. Musculoskeletal: Moves all extremities. No calf tenderness. No edema. Central nervous system: AAOx3. Dermatologic: Skin warm and dry. Assessment and plan: Patient is a 63-year-old female with past medical history significant for mucous ovarian carcinoma with VALERIANO-BSO 2018, type 2 diabetes, and hypertension that presented to the emergency room with right-sided abdominal pain. 1. Right sided abdominal pain. Appendiceal mucocele. Surgical team following, recommendations appreciated. S/P exploratory laparotomy, appendectomy with excision of right lower quadrant retroperitoneal mass, extensive lysis of adhesions, partial omentectomy, removal pelvic implants. Continue with pain management. Hem/onc recommendations appreciated. Pelvic MRI per radiologist showed a cystic loculated lesion in the right paracolic gutter adjacent to the cecum; measures 43 mm AP by 15 mm wide by 72 mm in length; considering the location this could represent an appendiceal mucocele. Abdominal MRI per radiologist shows negative study. 2. History of mucous ovarian carcinoma status post VALERIANO-BSO. Hem/onc recommendations appreciated. Patient will need close utility systems repairer operator/onc follow up as outpatient. CA-125 antigen elevated at 49.6. 3. Type 2 diabetes. Continue insulin sliding scale. Continue Levemir. Continue to monitor Accu-Cheks. Hemoglobin A1c 5.2. 4. History of hypertension. Controlled with diet. Continue to monitor off medications. 5. GI/DVT prophylaxis. Pepcid/Lovenox on hold 6. Patient is a full code. Case discussed in detail with the patient regarding current diagnosis and treatment plan. All questions answered.
[2018-12-12] MEDS: ceFAZolin IV 2 gm in Dextrose 2 GM/50 ML BAG IVPB SCH (05:26)
[2018-12-12] MEDS: Oxycodone/Acetaminophen 5/325 mg Tab PO PRN ×2 (06:09→14:25)
[2018-12-12 07:55] LABS: INR 1.29; PARTIAL THROMBOPLASTIN TIME 38.6 Seconds (26.9-38.3); PROTHROMBIN TIME 14.6 SECONDS (9.4-12.5)
--- NOTE | 2018-12-12 08:01 | CP.PCM.PN ---
Subjective - Date & Time of Evaluation Date of Evaluation: 12/12/18 Time of Evaluation: 07:58 - Subjective Subjective: General Surgery: Dr Aguirre Pt S&E. POD#1 s/p ex-lap with appendectomy and resection of RLQ mass w/ omentectomy and excison of pelvic implants. Pt is doing very well this morning. She has not required any pain medication overnight. She has been OOB to the rest room. Voiding independently. She has tolerated CLD. Denies N/V, F/C. She is using incentive spirometer and reaching >1200cc. Denies passing flatus or BM yet. Objective - Vital Signs/Intake and Output Vital Signs (last 24 hours): Temp Pulse Resp BP Pulse Ox 98.4 F 73 20 141/73 100 12/11/18 21:32 12/11/18 21:32 12/11/18 21:32 12/11/18 21:32 12/11/18 21:32 Intake and Output: 12/12/18 12/12/18 06:59 18:59 Intake Total 1380 Balance 1380 - Medications Medications: Current Medications Aspirin (Ecotrin) 81 mg PO DAILY [facility] Last Admin: 12/06/18 09:56 Dose: 81 mg Enoxaparin Sodium (Lovenox) 40 mg SC DAILY [facility]; Protocol Last Admin: 12/09/18 09:29 Dose: 40 mg Famotidine (Pepcid) 40 mg PO [facility] Last Admin: 12/11/18 21:02 Dose: 40 mg Insulin Detemir (Levemir) 30 unit SC [facility] Last Admin: 12/11/18 21:15 Dose: Not Given Insulin Human Regular (Humulin R Med) 0 units SC [facility]; Protocol Last Admin: 12/11/18 21:14 Dose: Not Given Ondansetron HCl (Zofran Inj) 4 mg IVP Q6 PRN PRN Reason: Nausea/Vomiting Last Admin: 12/11/18 12:56 Dose: 4 mg Oxycodone/Acetaminophen (Percocet 5/325 Mg Tab) 1 tab PO Q6H PRN PRN Reason: Pain, moderate (4-7) Stop: 12/14/18 14:24 Last Admin: 12/12/18 06:09 Dose: 1 tab - Labs Labs: 12/10/18 07:30 12/10/18 07:30 PT 14.6 SECONDS (9.4-12.5) H 12/12/18 07:20 INR 1.29 12/12/18 07:20 APTT 38.6 Seconds (26.9-38.3) H 12/12/18 07:20 - Constitutional Appears: Non-toxic, No Acute Distress - Eye Exam Eye Exam: Normal appearance - ENT Exam ENT Exam: Normal Exam - Respiratory Exam Respiratory Exam: absent: Respiratory Distress - Cardiovascular Exam Cardiovascular Exam: REGULAR RHYTHM. absent: Tachycardia - GI/Abdominal Exam GI & Abdominal Exam: Soft, Tenderness (post-operative and appropriate). absent: Distended, Firm, Guarding, Rigid, Mass, Rebound Additional comments: midline sterile dressing c/d/i - Extremities Exam Extremities Exam: absent: Pedal Edema - Neurological Exam Neurological Exam: Alert, Awake, Oriented x3 - Psychiatric Exam Psychiatric exam: Normal Affect, Normal Mood Assessment and Plan - Assessment and Plan (Free Text) Assessment: 63F POD#1 s/p ex-lap w/ excision of RLQ mass, appendectomy, omentectomy, excision of pelvic implants all presumably secondary to previous ovarian mucinous carcinoma (path pending) Plan: will adv to HHD d/c IV fluids cont spirometry cont to get OOB and ambulate no narcotics required monitor for bowel function f/u path will d/w Dr Boris Lester, PGY4
[2018-12-12 08:04] LABS: BASO # 0.01 K/mm3 (0.0-2.0); BASO % 0.1 % (0.0-3.0); EOS % 0.6 % (1.5-5.0); LYMPH # 1.7 (1.2-3.4); LYMPH % 24.2 % (22.0-35.0); MEAN CELL VOLUME 83.3 fl (80.0-105.0); MEAN CORPUSCULAR HEMOGLOBIN 27.9 pg (25.0-35.0); MEAN CORPUSCULAR HGB CONC 33.4 g/dl (31.0-37.0); MONO # 0.4 (0.1-0.6); MONO % 5.7 % (1.0-6.0); RBC 4.02 10^6/uL (3.5-6.1); RED CELL DISTRIBUTION WIDTH 12.6 % (11.5-14.5)
[2018-12-12 08:08] LABS: ALB/GLOB RATIO 1.2 (1.1-1.8); ALBUMIN 3.2 g/dL (3.0-4.8); ALT/SGPT 20 U/L (7-56); AST/SGOT 23 U/L (14-36); BLOOD UREA NITROGEN 11 mg/dL (7-21); GFR NON-AFRICAN AMERICAN > 60
[2018-12-12 08:33] LABS: HEMOGLOBIN 11.2 g/dL (12.0-16.0); WHITE BLOOD COUNT 7.2 10^3/uL (4.5-11.0)
[2018-12-12] MEDS: Insulin Reg-MEDIUM-Coverage SC SCH ×4 (09:56→22:27)
[2018-12-12] MEDS: Enoxaparin 40 mg Syringe SC SCH (10:22)
--- NOTE | 2018-12-12 14:27 | CP.PCM.PN ---
<Glynn Zelaya - Last Filed: 12/12/18 14:45> Subjective - Date & Time of Evaluation Date of Evaluation: 12/12/18 Time of Evaluation: 14:12 - Subjective Subjective: Glynn Zelaya DO PGY1 - Internal Medicine Warper Fixer - Hospitalist Progress Note Patient was seen and evaluated at bedside this morning No acute events reported overnight; mild surgical site tenderness; Tolerating well post operatively; no complaints of fevers/ chills Encouraged out bed to chair and ambulation Objective - Vital Signs/Intake and Output Vital Signs (last 24 hours): Temp Pulse Resp BP Pulse Ox 98.1 F 68 20 143/81 98 12/12/18 06:00 12/12/18 06:00 12/12/18 06:00 12/12/18 06:00 12/12/18 06:00 Intake and Output: 12/12/18 12/12/18 06:59 18:59 Intake Total 1380 Balance 1380 - Medications Medications: Current Medications Aspirin (Ecotrin) 81 mg PO DAILY [facility] Last Admin: 12/06/18 09:56 Dose: 81 mg Benzocaine/Menthol (Cepacol Sore Throat) 1 kishore [place] Q2H PRN PRN Reason: Sore Throat Enoxaparin Sodium (Lovenox) 40 mg SC DAILY [facility]; Protocol Last Admin: 12/12/18 10:22 Dose: 40 mg Famotidine (Pepcid) 40 mg PO [facility] Last Admin: 12/11/18 21:02 Dose: 40 mg Insulin Detemir (Levemir) 30 unit SC [facility] Last Admin: 12/11/18 21:15 Dose: Not Given Insulin Human Regular (Humulin R Med) 0 units SC [facility]; Protocol Last Admin: 12/12/18 12:37 Dose: Not Given Ondansetron HCl (Zofran Inj) 4 mg IVP Q6 PRN PRN Reason: Nausea/Vomiting Last Admin: 12/11/18 12:56 Dose: 4 mg Oxycodone/Acetaminophen (Percocet 5/325 Mg Tab) 1 tab PO Q6H PRN PRN Reason: Pain, moderate (4-7) Stop: 12/14/18 14:24 Last Admin: 12/12/18 06:09 Dose: 1 tab - Labs Labs: 12/12/18 07:20 12/12/18 07:20 PT 14.6 SECONDS (9.4-12.5) H 12/12/18 07:20 INR 1.29 12/12/18 07:20 APTT 38.6 Seconds (26.9-38.3) H 12/12/18 07:20 - Constitutional Appears: Well, Non-toxic, No Acute Distress - Head Exam Head Exam: ATRAUMATIC, NORMOCEPHALIC - Eye Exam Eye Exam: EOMI, Normal appearance, PERRL. absent: Scleral icterus - Respiratory Exam Respiratory Exam: Clear to Ausculation Bilateral, NORMAL BREATHING PATTERN - Cardiovascular Exam Cardiovascular Exam: RRR, +S1, +S2 - GI/Abdominal Exam GI & Abdominal Exam: Distended, Soft, Tenderness to palpation diffusely, Tympanic Additional comments: Dressing midline intact; Wound dressed - Psychiatric Exam Psychiatric exam: Normal Affect, Normal Mood - Skin Skin Exam: Dry, Intact, Warm Assessment and Plan (1) RLQ abdominal mass Assessment & Plan: Patient is status post exploratory laparotomy w/ appendectomy and RLQ mass excision and omentectomy 12/07 MRI Abdomen Pelvis w/ IV CON : thick walled loculated lesion in the R pericolic gutter - appendiceal mucocele Encourage OOB to Chair / Ambulation - PT ordered Incentive Spirometer use Monitor for BM Follow up OR Speciment Pathology Further reccs as per surgery Zofran 4 Q6PRN Nausea General Surgery Following - Dr. Davidson Heme/Onc Following - Dr. Christensen Current Analgesia oxyCODONE/Acetaminophen [Percocet 5/325 mg Tab] 1 tab PO Q6H PRN Status: Acute (2) Mucinous cystadenocarcinoma of ovary Assessment & Plan: Prior Hx Mucinous Ovarian Cystadenocarcinoma S/P Total abdominal hysterectomy; Bilateral salpingo-oophrectomy Possible pelvic implants due to prior disease hystory Follow up surgical pathology CA125 elevated - 49 Will need outpt PET; Will need outpt FERMENTING CELLAR DROPPER/Onc F/U Status: Resolved (3) Diabetes Assessment & Plan: Repeat HbA1C 5.2 Levemir 30HS, Medium ISS Accuchecks ACHS Diabetic Education completed Status: Chronic (4) HTN (hypertension) Assessment & Plan: BP wnl; continue to monitor C/w ASA 81QD Status: Chronic - Assessment and Plan (Free Text) Assessment: 63F w/ a PMH of HTN, DM, Ovarian CA s/p total abdominal hysterectomy, oophrec carter, salpingectomy presented to [facility] on 12/05 w/ c/o of RLQ pain. Patient is status post Exploratory laparotomy w/ appendectomy and RLQ mass excision and omentectomy on 12/11 Plan as above GI/DVT PPX: Pepcid Lovenox 40 SC Daily - held; will resume per surgical team reccs DISPO: Pt. is to follow up w/ PMD Dr. Smith and [facility] on December 25 at 1:30pm upon discharge Patient was seen, examined, and discussed w/ attending Dr. Karen Zelaya DO PGY1 - Internal Medicine Warper Fixer - Hospitalist Progress Note <Karen Zelaya R - Last Filed: 12/12/18 18:46> Objective - Vital Signs/Intake and Output Vital Signs (last 24 hours): Temp Pulse Resp BP Pulse Ox 98.4 F 68 18 159/83 H 96 12/12/18 14:00 12/12/18 14:00 12/12/18 14:00 12/12/18 14:00 12/12/18 14:00 Intake and Output: 12/12/18 12/12/18 06:59 18:59 Intake Total 1380 Balance 1380 - Medications Medications: Current Medications Aspirin (Ecotrin) 81 mg PO DAILY [facility] Last Admin: 12/06/18 09:56 Dose: 81 mg Benzocaine/Menthol (Cepacol Sore Throat) 1 kishore [place] Q2H PRN PRN Reason: Sore Throat Enoxaparin Sodium (Lovenox) 40 mg SC DAILY [facility]; Protocol Last Admin: 12/12/18 10:22 Dose: 40 mg Famotidine (Pepcid) 40 mg PO HS [facility] Last Admin: 12/11/18 21:02 Dose: 40 mg Insulin Detemir (Levemir) 30 unit SC [facility] Last Admin: 12/11/18 21:15 Dose: Not Given Insulin Human Regular (Humulin R Med) 0 units SC [facility]; Protocol Last Admin: 12/12/18 12:37 Dose: Not Given Ondansetron HCl (Zofran Inj) 4 mg IVP Q6 PRN PRN Reason: Nausea/Vomiting Last Admin: 12/11/18 12:56 Dose: 4 mg Oxycodone/Acetaminophen (Percocet 5/325 Mg Tab) 1 tab PO Q6H PRN PRN Reason: Pain, moderate (4-7) Stop: 12/14/18 14:24 Last Admin: 12/12/18 14:25 Dose: 1 tab - Labs Labs: 12/12/18 07:20 12/12/18 07:20 PT 14.6 SECONDS (9.4-12.5) H 12/12/18 07:20 INR 1.29 12/12/18 07:20 APTT 38.6 Seconds (26.9-38.3) H 12/12/18 07:20 Attending/Attestation - Attestation I have personally seen and examined this patient.: Yes I have fully participated in the care of the patient.: Yes I have reviewed all pertinent clinical information, including history, physical exam and plan: Yes Notes (Text): Patient seen and examined by me with resident at approximately 10:15AM on 12/12/18. Case including HPI, physical exam, and assessment and plan discussed with resident. Agree with above with following additions/corrections. Patient is a 63-year-old female with past medical history significant for mucous ovarian carcinoma with VALERIANO-BSO 2018, type 2 diabetes, and hypertension that presented to the emergency room with right-sided abdominal pain. Patient states she is feeling ok. States she had some soup yesterday and was able to tolerate it. Has not tried breakfast. No nausea or vomiting. Patient states that she is having some abdominal pain but its tolerable. Patient has not had flatus or bowel movement. Patient states she has been getting up and walking to the bathroom on her own. Patient is also using the incentive spirometer. Patient denies chest pain or palpitations. No headaches or dizziness. No dysuria. No fevers or chills. Physical exam: General: Awake and alert sitting up chair in no acute distress. HEENT: Normocephalic, atraumatic. Extraocular muscles intact, pupils equal and reactive, no scleral icterus. Oropharynx is pink and moist. No pharyngeal erythema or exudate appreciated. Neck is supple. Cardiovascular: Normal rhythm. Normal S1 and S2. No murmurs, rubs, or gallops appreciated Pulmonary: Normal respiratory effort. No rhonchi, rales, or wheezing appreciated. Gastrointestinal: Soft. Mild distention. Positive generalized tenderness. Hypoactive bowel sounds all 4 quadrants. No guarding. Dressing clean, dry, and intact. Musculoskeletal: Moves all extremities. No calf tenderness. No edema. Central nervous system: AAOx3. Dermatologic: Skin warm and dry. Assessment and plan: Patient is a 63-year-old female with past medical history significant for mucous ovarian carcinoma with VALERIANO-BSO 2018, type 2 diabetes, and hypertension that presented to the emergency room with right-sided abdominal pain. 1. Right sided abdominal pain. Appendiceal mucocele. Surgical team following, recommendations appreciated. S/P exploratory laparotomy, appendectomy with excision of right lower quadrant retroperitoneal mass, extensive lysis of adhesions, partial omentectomy, removal pelvic implants on 12/11/18. Pending path results. Continue with incentive spirometer. Encourage OOB. Diet advanced. Pelvic MRI per radiologist showed a cystic loculated lesion in the right paracolic gutter adjacent to the cecum; measures 43 mm AP by 15 mm wide by 72 mm in length; considering the location this could represent an appendiceal mucocele. Abdominal MRI per radiologist shows negative study. 2. History of mucous ovarian carcinoma status post VALERIANO-BSO. Hem/onc recommendations appreciated. Patient will need close parachute repairer/onc follow up as outpatient. CA-125 antigen elevated at 49.6. 3. Type 2 diabetes. Continue insulin sliding scale. Continue Levemir. Continue to monitor Accu-Cheks. Hemoglobin A1c 5.2. 4. History of hypertension. Controlled with diet. Continue to monitor off medications. 5. GI/DVT prophylaxis. Pepcid/Lovenox 6. Patient is a full code. Case discussed in detail with the patient regarding current diagnosis and treatment plan. All questions answered.
[2018-12-12 15:55] VITALS: RESP 18
[2018-12-12] MEDS: Insulin Detemir 100 units/ml Vial (Levemir) SC SCH (22:27)
[2018-12-13] MEDS: Benzocaine/Menthol (Cepacol) Lozenge MT PRN ×4 (05:09→20:43)
[2018-12-13] MEDS: Oxycodone/Acetaminophen 5/325 mg Tab PO PRN (05:15)
[2018-12-13] MEDS: Insulin Reg-MEDIUM-Coverage SC SCH ×4 (08:08→22:35)
[2018-12-13 08:10] VITALS: O2SAT 98
--- NOTE | 2018-12-13 08:52 | CP.PCM.PN ---
Subjective - Date & Time of Evaluation Date of Evaluation: 12/13/18 Time of Evaluation: 06:30 - Subjective Subjective: Patient seen and examined. No acute events over night. Tolerating diet. Abdominal dressing changed, saturated with clotted blood. Objective - Vital Signs/Intake and Output Vital Signs (last 24 hours): Temp Pulse Resp BP Pulse Ox 98.7 F 88 18 156/80 H 98 12/13/18 06:00 12/13/18 06:00 12/13/18 06:00 12/13/18 06:00 12/13/18 06:00 Intake and Output: 12/13/18 12/13/18 06:59 18:59 Intake Total 840 Balance 840 - Medications Medications: Current Medications Aspirin (Ecotrin) 81 mg PO DAILY [facility] Last Admin: 12/06/18 09:56 Dose: 81 mg Benzocaine/Menthol (Cepacol Sore Throat) 1 kishore MT Q2H PRN PRN Reason: Sore Throat Last Admin: 12/13/18 05:09 Dose: 1 kishore Enoxaparin Sodium (Lovenox) 40 mg SC DAILY [facility]; Protocol Last Admin: 12/12/18 10:22 Dose: 40 mg Famotidine (Pepcid) 40 mg PO [facility] Last Admin: 12/12/18 22:27 Dose: 40 mg Insulin Detemir (Levemir) 30 unit SC [facility] Last Admin: 12/12/18 22:27 Dose: Not Given Insulin Human Regular (Humulin R Med) 0 units SC [facility]; Protocol Last Admin: 12/13/18 08:08 Dose: Not Given Ondansetron HCl (Zofran Inj) 4 mg IVP Q6 PRN PRN Reason: Nausea/Vomiting Last Admin: 12/11/18 12:56 Dose: 4 mg Oxycodone/Acetaminophen (Percocet 5/325 Mg Tab) 1 tab PO Q6H PRN PRN Reason: Pain, moderate (4-7) Stop: 12/14/18 14:24 Last Admin: 12/13/18 05:15 Dose: 1 tab - Labs Labs: 12/12/18 07:20 12/12/18 07:20 PT 14.6 SECONDS (9.4-12.5) H 12/12/18 07:20 INR 1.29 12/12/18 07:20 APTT 38.6 Seconds (26.9-38.3) H 12/12/18 07:20 - Constitutional Appears: No Acute Distress - Head Exam Head Exam: NORMOCEPHALIC - Eye Exam Eye Exam: EOMI, Normal appearance - ENT Exam ENT Exam: Mucous Membranes Moist - Respiratory Exam Respiratory Exam: NORMAL BREATHING PATTERN - Cardiovascular Exam Cardiovascular Exam: +S1, +S2 - GI/Abdominal Exam GI & Abdominal Exam: Soft, Tenderness Additional comments: incision site tenderness - Neurological Exam Neurological Exam: Alert, Awake, Oriented x3 - Psychiatric Exam Psychiatric exam: Normal Mood - Skin Skin Exam: Dry, Intact, Warm Assessment and Plan - Assessment and Plan (Free Text) Assessment: 63F POD#2 s/p ex-lap w/ excision of RLQ mass, appendectomy, omentectomy, excision of pelvic implants all presumably secondary to previous ovarian muci nous carcinoma (path pending) Plan: C/w HHD cont IS cont to get OOB and ambulate f/u path Further recs per Dr. Boris Gibson PGY3
[2018-12-13 10:04] LABS: BASO # 0.01 K/mm3 (0.0-2.0); BASO % 0.2 % (0.0-3.0); EOS # 0.1 (0.0-0.7); EOS % 1.7 % (1.5-5.0); HEMOGLOBIN 11.1 g/dL (12.0-16.0); LYMPH # 2.5 (1.2-3.4); LYMPH % 39.1 % (22.0-35.0); MEAN CELL VOLUME 83.5 fl (80.0-105.0); MEAN CORPUSCULAR HEMOGLOBIN 28.6 pg (25.0-35.0); MEAN CORPUSCULAR HGB CONC 34.3 g/dl (31.0-37.0); MEAN PLATELET VOLUME 10.4 fl (7.0-11.0); MONO # 0.3 (0.1-0.6); RBC 3.88 10^6/uL (3.5-6.1); RED CELL DISTRIBUTION WIDTH 12.7 % (11.5-14.5); WHITE BLOOD COUNT 6.4 10^3/uL (4.5-11.0)
[2018-12-13 10:31] LABS: ALB/GLOB RATIO 1.2 (1.1-1.8); ALBUMIN 3.4 g/dL (3.0-4.8); ALT/SGPT 21 U/L (7-56); AST/SGOT 23 U/L (14-36); BLOOD UREA NITROGEN 8 mg/dL (7-21); CALCIUM 9.5 mg/dL (8.4-10.5); GFR NON-AFRICAN AMERICAN > 60
[2018-12-13] MEDS: Enoxaparin 40 mg Syringe SC SCH (10:55)
--- NOTE | 2018-12-13 18:29 | CP.PCM.PN ---
<Glynn Zelaya - Last Filed: 12/13/18 19:35> Subjective - Date & Time of Evaluation Date of Evaluation: 12/13/18 Time of Evaluation: 09:00 - Subjective Subjective: Glynn Zelaya DO PGY1 - Internal Medicine Asset Protection Specialist - Hospitalist Progress Note seen and examined at bed side this morning no acute events reported overnight tolerating diet well, reports passing flatus, no fevers, chills, cp, sob. n Objective - Vital Signs/Intake and Output Vital Signs (last 24 hours): Temp Pulse Resp BP Pulse Ox 98.5 F 70 18 146/76 98 12/13/18 14:00 12/13/18 14:00 12/13/18 14:00 12/13/18 14:00 12/13/18 14:00 Intake and Output: 12/13/18 12/13/18 06:59 18:59 Intake Total 840 Balance 840 - Medications Medications: Current Medications Aspirin (Ecotrin) 81 mg PO DAILY [facility] Last Admin: 12/06/18 09:56 Dose: 81 mg Benzocaine/Menthol (Cepacol Sore Throat) 1 kishore MT Q2H PRN PRN Reason: Sore Throat Last Admin: 12/13/18 14:47 Dose: 1 kishore Enoxaparin Sodium (Lovenox) 40 mg SC DAILY [facility]; Protocol Last Admin: 12/13/18 10:55 Dose: 40 mg Famotidine (Pepcid) 40 mg PO HS [facility] Last Admin: 12/12/18 22:27 Dose: 40 mg Insulin Detemir (Levemir) 30 unit SC [facility] Last Admin: 12/12/18 22:27 Dose: Not Given Insulin Human Regular (Humulin R Med) 0 units SC [facility]; Protocol Last Admin: 12/13/18 17:13 Dose: Not Given Ondansetron HCl (Zofran Inj) 4 mg IVP Q6 PRN PRN Reason: Nausea/Vomiting Last Admin: 12/11/18 12:56 Dose: 4 mg Oxycodone/Acetaminophen (Percocet 5/325 Mg Tab) 1 tab PO Q6H PRN PRN Reason: Pain, moderate (4-7) Stop: 12/14/18 14:24 Last Admin: 12/13/18 05:15 Dose: 1 tab - Labs Labs: 12/13/18 09:50 12/13/18 09:50 PT 14.6 SECONDS (9.4-12.5) H 12/12/18 07:20 INR 1.29 12/12/18 07:20 APTT 38.6 Seconds (26.9-38.3) H 12/12/18 07:20 - Constitutional Appears: Well, Non-toxic, No Acute Distress - Head Exam Head Exam: ATRAUMATIC, NORMOCEPHALIC - Eye Exam Eye Exam: EOMI, Normal appearance, PERRL. absent: Scleral icterus - Respiratory Exam Respiratory Exam: Clear to Ausculation Bilateral, NORMAL BREATHING PATTERN - Cardiovascular Exam Cardiovascular Exam: RRR, +S1, +S2 - GI/Abdominal Exam GI & Abdominal Exam: Distended w/ mild tenderness to palpation; dressing midline w/ clotted blood; no active drainage appreciated - Psychiatric Exam Psychiatric exam: Normal Affect, Normal Mood - Skin Skin Exam: Dry, Intact, Warm Assessment and Plan (1) RLQ abdominal mass Assessment & Plan: Patient is status post exploratory laparotomy w/ appendectomy and RLQ mass excision and omentectomy 12/07 MRI Abdomen Pelvis w/ IV CON : thick walled loculated lesion in the R pericolic gutter - appendiceal mucocele Currently pending further reccs from heme-onc post operative evaluation Encourage OOB to Chair / Ambulation - PT ordered Incentive Spirometer use Monitor for BM Follow up OR Speciment Pathology Will continue monitoring post operatively; Zofran 4 Q6PRN Nausea General Surgery Following - Dr. Davidson Heme/Onc Following - Dr. Christensen Current Analgesia: Oxycodone/Acetaminophen (Percocet 5/325 Mg Tab) 1 tab PO Q6H PRN PRN Reason: Pain, moderate (4-7) Status: Acute (2) Mucinous cystadenocarcinoma of ovary Assessment & Plan: Prior Hx Mucinous Ovarian Cystadenocarcinoma S/P Total abdominal hysterectomy; Bilateral salpingo-oophrectomy Possible pelvic implants due to prior disease hystory Follow up surgical pathology CA125 elevated - 49 Will need outpt PET; Will need outpt HEALTH CARE COORDINATOR/Onc F/U Status: Resolved (3) Diabetes Assessment & Plan: Repeat HbA1C 5.2 Levemir 30HS, Medium ISS Accuchecks ACHS Diabetic Education completed Status: Chronic (4) HTN (hypertension) Assessment & Plan: BP wnl; continue to monitor C/w ASA 81QD Status: Chronic - Assessment and Plan (Free Text) Assessment: 63F w/ a PMH of HTN, DM, Ovarian CA s/p total abdominal hysterectomy, oophrectomy, salpingectomy presented to [facility] [place] on 12/05 w/ c/o of RLQ pain. Patient is status post Exploratory laparotomy w/ appendectomy and RLQ mass excision and omentectomy on 12/11. Patient is tolerating well postoperatively; pending post- operative evaluation by heme-onc at this time GI/DVT PPX: Pepcid Lovenox 40 SC Daily - held; will resume per surgical team reccs DISPO: Pt. is to follow up w/ PMD Dr. Smith and [facility] on December 25 at 1:30pm upon discharge Patient was seen, examined, and discussed w/ attending Dr. Karen Zelaya DO PGY1 - Internal Medicine Asset Protection Specialist - Hospitalist Progress Note <Karen Zelaya R - Last Filed: 12/14/18 12:05> Objective - Vital Signs/Intake and Output Vital Signs (last 24 hours): Temp Pulse Resp BP Pulse Ox 99 F 73 18 144/82 98 12/14/18 06:00 12/14/18 06:00 12/14/18 06:00 12/14/18 06:00 12/14/18 06:00 Intake and Output: 12/14/18 12/14/18 06:59 18:59 Intake Total 760 Balance 760 - Medications Medications: Current Medications Aspirin (Ecotrin) 81 mg PO DAILY [facility] Last Admin: 12/06/18 09:56 Dose: 81 mg Benzocaine/Menthol (Cepacol Sore Throat) 1 kishore MT Q2H PRN PRN Reason: Sore Throat Last Admin: 12/13/18 20:43 Dose: 1 kishore Enoxaparin Sodium (Lovenox) 40 mg SC DAILY [facility]; Protocol Last Admin: 12/13/18 10:55 Dose: 40 mg Famotidine (Pepcid) 40 mg PO HS [facility] Last Admin: 12/13/18 22:33 Dose: 40 mg Insulin Detemir (Levemir) 30 unit SC HS [facility] Last Admin: 12/13/18 22:33 Dose: 30 units Insulin Human Regular (Humulin R Med) 0 units SC [facility]; Protocol Last Admin: 12/14/18 12:00 Dose: 1 units Ondansetron HCl (Zofran Inj) 4 mg IVP Q6 PRN PRN Reason: Nausea/Vomiting Last Admin: 12/11/18 12:56 Dose: 4 mg Oxycodone/Acetaminophen (Percocet 5/325 Mg Tab) 1 tab PO Q6H PRN PRN Reason: Pain, moderate (4-7) Stop: 12/14/18 14:24 Last Admin: 12/13/18 05:15 Dose: 1 tab - Labs Labs: 12/14/18 07:00 12/14/18 07:00 PT 14.6 SECONDS (9.4-12.5) H 12/12/18 07:20 INR 1.29 12/12/18 07:20 APTT 38.6 Seconds (26.9-38.3) H 12/12/18 07:20 Attending/Attestation - Attestation I have personally seen and examined this patient.: Yes I have fully participated in the care of the patient.: Yes I have reviewed all pertinent clinical information, including history, physical exam and plan: Yes Notes (Text): Patient seen and examined by me with resident at approximately 10:15AM on 12/13/18. Case including HPI, physical exam, and assessment and plan discussed with resident. Agree with above with following additions/corrections. Patient is a 63-year-old female with past medical history significant for mucous ovarian carcinoma with VALERIANO-BSO 2018, type 2 diabetes, and hypertension that presented to the emergency room with right-sided abdominal pain. Patient states she is feeling a little better. Tolerating diet. Patient is having flatus. No nausea or vomiting. Abdominal pain is tolerable. Patient is able to ambulate. She denies chest pain or palpitations. No headaches or dizziness. No dysuria. No fevers or chills. Physical exam: General: Awake and alert sitting up chair in no acute distress. HEENT: Normocephalic, atraumatic. Extraocular muscles intact, pupils equal and reactive, no scleral icterus. Oropharynx is pink and moist. No pharyngeal erythema or exudate appreciated. Neck is supple. Cardiovascular: Normal rhythm. Normal S1 and S2. No murmurs, rubs, or gallops appreciated Pulmonary: Normal respiratory effort. No rhonchi, rales, or wheezing appreciated. Gastrointestinal: Soft. Positive distention. Positive generalized tenderness. Hypoactive bowel sounds all 4 quadrants. No guarding. Vertical incision dressing clean, dry, and intact. Musculoskeletal: Moves all extremities. No calf tenderness. No edema. Central nervous system: AAOx3. Dermatologic: Skin warm and dry. Assessment and plan: Patient is a 63-year-old female with past medical history significant for mucous ovarian carcinoma with VALERIANO-BSO 2018, type 2 diabetes, and hypertension that presented to the emergency room with right-sided abdominal pain. 1. Right sided abdominal pain. Appendiceal mucocele. S/P exploratory laparotomy, appendectomy with excision of right lower quadrant retroperitoneal mass, extensive lysis of adhesions, partial omentectomy, removal pelvic implants on 12/11/18. Surgical team following, recommendations appreciated. Pending path results. Continue with incentive spirometer. Continue to encourage OOB. Tolerating diet. Pelvic MRI per radiologist showed a cystic loculated lesion in the right paracolic gutter adjacent to the cecum; measures 43 mm AP by 15 mm wide by 72 mm in length; considering the location this could represent an appendiceal mucocele. Abdominal MRI per radiologist shows negative study. 2. History of mucous ovarian carcinoma status post VALERIANO-BSO. Hem/onc recommendations appreciated. Patient will need close sharepoint specialist/onc follow up as outpatient. CA-125 antigen elevated at 49.6. 3. Type 2 diabetes. Continue insulin sliding scale. Continue Levemir. Continue to monitor Accu-Cheks. Hemoglobin A1c 5.2. 4. History of hypertension. Controlled with diet. Continue to monitor off medications. 5. GI/DVT prophylaxis. Pepcid/Lovenox 6. Patient is a full code. Case discussed in detail with the patient regarding current diagnosis and treatment plan. All questions answered.
--- NOTE | 2018-12-13 20:58 | CP.PCM.PN ---
Subjective - Date & Time of Evaluation Date of Evaluation: 12/13/18 Time of Evaluation: 17:00 - Subjective Subjective: No complaints. Objective - Vital Signs/Intake and Output Vital Signs (last 24 hours): Temp Pulse Resp BP Pulse Ox 98.5 F 70 18 146/76 98 12/13/18 14:00 12/13/18 14:00 12/13/18 14:00 12/13/18 14:00 12/13/18 14:00 - Medications Medications: Current Medications Aspirin (Ecotrin) 81 mg PO DAILY [facility] Last Admin: 12/06/18 09:56 Dose: 81 mg Benzocaine/Menthol (Cepacol Sore Throat) 1 kishore MT Q2H PRN PRN Reason: Sore Throat Last Admin: 12/13/18 20:43 Dose: 1 kishore Enoxaparin Sodium (Lovenox) 40 mg SC DAILY [facility]; Protocol Last Admin: 12/13/18 10:55 Dose: 40 mg Famotidine (Pepcid) 40 mg PO [facility] Last Admin: 12/12/18 22:27 Dose: 40 mg Insulin Detemir (Levemir) 30 unit SC [facility] Last Admin: 12/12/18 22:27 Dose: Not Given Insulin Human Regular (Humulin R Med) 0 units SC [facility]; Protocol Last Admin: 12/13/18 17:13 Dose: Not Given Ondansetron HCl (Zofran Inj) 4 mg IVP Q6 PRN PRN Reason: Nausea/Vomiting Last Admin: 12/11/18 12:56 Dose: 4 mg Oxycodone/Acetaminophen (Percocet 5/325 Mg Tab) 1 tab PO Q6H PRN PRN Reason: Pain, moderate (4-7) Stop: 12/14/18 14:24 Last Admin: 12/13/18 05:15 Dose: 1 tab - Labs Labs: 12/13/18 09:50 12/13/18 09:50 PT 14.6 SECONDS (9.4-12.5) H 12/12/18 07:20 INR 1.29 12/12/18 07:20 APTT 38.6 Seconds (26.9-38.3) H 12/12/18 07:20 - Head Exam Head Exam: ATRAUMATIC - Eye Exam Eye Exam: Normal appearance - ENT Exam ENT Exam: Mucous Membranes Dry - Respiratory Exam Respiratory Exam: NORMAL BREATHING PATTERN - Cardiovascular Exam Cardiovascular Exam: +S1, +S2 - GI/Abdominal Exam GI & Abdominal Exam: Normal Bowel Sounds Assessment and Plan (1) Mucocele of appendix Assessment & Plan: s/p surgery f/u path Status: Acute (2) History of ovarian cancer Assessment & Plan: outpatient f/u Status: Acute
[2018-12-13] MEDS: Insulin Detemir 100 units/ml Vial (Levemir) SC SCH (22:33)
[2018-12-14 07:29] LABS: BASO # 0.01 K/mm3 (0.0-2.0); BASO % 0.1 % (0.0-3.0); EOS # 0.2 (0.0-0.7); EOS % 3.3 % (1.5-5.0); HEMOGLOBIN 11.8 g/dL (12.0-16.0); LYMPH # 2.3 (1.2-3.4); LYMPH % 34.7 % (22.0-35.0); MEAN CELL VOLUME 83.2 fl (80.0-105.0); MEAN CORPUSCULAR HEMOGLOBIN 28.3 pg (25.0-35.0); MEAN PLATELET VOLUME 10.3 fl (7.0-11.0); MONO # 0.3 (0.1-0.6); MONO % 5.1 % (1.0-6.0); RBC 4.17 10^6/uL (3.5-6.1); RED CELL DISTRIBUTION WIDTH 12.5 % (11.5-14.5); WHITE BLOOD COUNT 6.7 10^3/uL (4.5-11.0)
[2018-12-14 08:13] LABS: ALBUMIN 3.5 g/dL (3.0-4.8); ALT/SGPT 8 U/L (7-56); AST/SGOT 22 U/L (14-36); BLOOD UREA NITROGEN 9 mg/dL (7-21); CALCIUM 9.7 mg/dL (8.4-10.5); GFR NON-AFRICAN AMERICAN > 60
[2018-12-14 08:25] VITALS: BP 144/82; PULSE 73; TEMP 99
[2018-12-14] MEDS: Insulin Reg-MEDIUM-Coverage SC SCH ×2 (08:28→12:00)
--- NOTE | 2018-12-14 08:53 | OP ---
PROCEDURE DATE: 12/11/2018 SURGEON: Yo Gaitan MD. ALUM OPERATOR: Billy Lester DO, PGY-4; Arian Cade DO, PGY-3; Oumar Ashton DO, PGY-2. TYPE OF ANESTHESIA: General endotracheal. ANESTHESIA ADMINISTERED BY: Prabhakar Conley MD. PREOPERATIVE DIAGNOSIS: Right lower quadrant mass. POSTOPERATIVE DIAGNOSIS: Right lower quadrant mass. OPERATIVE FINDINGS: Right lower quadrant mass, omental implants and pelvic implants. OPERATION PERFORMED: Exploratory laparotomy and appendectomy with excision of right lower quadrant/retroperitoneal mass, extensive lysis of adhesions, partial omentectomy, and removal of pelvic implants. SPECIMENS REMOVED: Omental implants, the greater omentum, the appendix with the retroperitoneal mass as well as pelvic implants. ESTIMATED BLOOD LOSS: Approximately 25 mL. INDICATION: Ms. Galeano is a 63-year-old female who presented to the hospital with lower abdominal pain. The patient had a remote history of laparotomy with VALERIANO-BSO and found to have ovarian mucinous carcinoma. The surgery was performed approximately two years ago in [place]. On CAT scan and workup, the patient was found to have what appeared to be a mucinous mass in the right lower quadrant with a surrounding calcified rim, presumptively metastasis of the original surgery. The patient was taken for a laparotomy for removal of the mass. DESCRIPTION OF PROCEDURE: The patient was brought to the operating room, placed on the table in supine position. After the induction of general anesthesia, a time-out was performed identifying the correct patient, the correct surgery that we are about to perform. All preoperative risks and assessments were noted, and the patient received 2 g of Ancef. The entire room was in agreement with the time-out, and the patient was prepped and draped in the usual sterile fashion. We began our surgery with a midline incision. This incision was made over the preexisting excision excising the preexisting keloid scar, approximately 3 cm below the umbilicus with a keyhole fashion extending 5 cm above the umbilicus. Dissection was carried down to the posterior fascia using electrocautery ensuring hemostasis was achieved throughout this. Once we get down to the posterior fascia, the incision was made into the posterior fascia with a Metzenbaum scissors and the peritoneum was identified. This was brought up with Georgina clamps and entered with Metzenbaum scissors and then a finger was introduced to the abdomen to bluntly inspect that there were no underlying adhesions to the incision. Once this was noted, the incision was extended using electrocautery and opened to its full length. At this point, we turned our attention to evaluating the abdominal contents. This proved very difficult as there was a significant amount of adhesions on both sides lateral to the midline. Extensive lysis of adhesions was required to take these down to gain visual access to the remainder of the abdominal cavity. Lysis of adhesions was done with electrocautery, manually moving the bowel away to ensure their protection which took approximately 45 to 55 minutes. Once we completed our lysis of adhesions, we were able to fully identify all the structures in the abdomen. We immediately turned our attention to the greater omentum which was noted to have a very small 1 to 2 mm gelatinous implants. We initially took three of these off as specimen and as we continued to evaluate the omentum, we noticed that there were presumably greater than seven to eight omental implants. So it was decided that an omentectomy would be of the best benefit for this patient. So, using the Harmonic, LigaSure, the omentum was taken down ensuring hemostasis throughout its removal. After the omentum was completely transected from the transverse colon, this was delivered off the field as specimen #1. We then turned our attention towards evaluating the right lower quadrant mass. We were able to note that fortunately, the mass was freely mobile off of the right paracolic gutter. Appeared to be coming off of the tip of the appendix, however, the appendix itself was adhered to the lateral aspect of the cecum as well as the underlying retroperitoneal tissue. Using electrocautery, we made a window at the mesenteric base of the appendix giving us a space to pass our TA stapler and then divide the appendix. The stapler was fired, however, the appendix was not ligated. We carried out the dissection using the Harmonic scalpel from the base of the appendix up to the mass which was clearly originating from the tip of the appendix. We then turned our attention to mobilizing the mass from the attachments. It did have upon the cecum as well as the retroperitoneal tissue. This was done with a Harmonic scalpel. Again taking care to identify the ureter in the right paracolic gutter which was swept medially and away from our area of dissection. Again dissection was carried out with full visualization. Once we are able to fully mobilize the mass, the cecum and the mass itself were able to be delivered up into the operative field and then dissection continued with Harmonic as this was freely mobilized away from the lateral aspect of the cecum. Once the mass was completely mobilized, we turned our attention to completing the ligation of the appendix. Georgina clamp was applied just distal to the suture line and then the appendix was transected using a #15 blade. The appendiceal stump was then painted with Betadine and then using a 2-0 Vicryl suture in a Z-stitch fashion, the appendiceal stump was dumped into the inferior border of the appendix and the overlying cecal end was sutured in a limbic fashion to occlude the appendiceal stump. Hemostasis was ensured. There was no evidence of bleeding in the appendix and the associated appendiceal/retroperitoneal mass was delivered from the patient and sent off as specimen #2. Once the specimen had been clearly removed from the abdomen, we turned our attention to inspecting the remainder of the abdomen. The liver was palpated in which there was no masses noted. The stomach itself also appeared normal as did the pancreas which was palpated as well. There was no peritoneal noted along the anterior peritoneum or the diaphragm. We then did some local irrigation to the right lower quadrant, taking care not to spread anything throughout the entire abdomen. Then we turned our attention to the pelvis. Once we were in the pelvis, it was noted that there was a mucinous collection down in the pouch of Cresencio or what would have been in the pouch of Cresencio prior to the patient's hysterectomy. The mucin was removed via suction. It was noted that there were some other small implants along the peritoneum in the pelvic floor. These were excised with sharp dissection using Metzenbaum scissors as well as electrocautery using the Bovie. At this point, it was noted that further resection and debulking would not be as a greatest benefit to the patient and that all tumor causing her current physiological distress had been removed. At this point, decision was made to close the abdomen. Prior to that, it was once again inspected to ensure that hemostasis had been achieved and there were no further lesions that needed to be addressed. The bowel was run from the ligament of Treitz down to the cecum. We re-explored the liver, reevaluated the stomach, reevaluated the remainder of the colon and the pelvis and there were no other lesions that warranted our attention at this time. Our attention was turned towards closing the abdomen which was done with 0-PDS single stitch. Abdomen was closed in continuous fashion with 2-0 PDS, one from the top, one from the bottom using the malleable to protect the bowel ensuring that no bowel was caught within our sutures. All of this was done under direct visualization. Once the abdomen was closed, the wound itself was again irrigated with sterile saline and then dried off using lap pads and then we closed the skin with nabeel. Approximately 20 mL of Exparel were then injected into the patient. The Exparel was diluted with saline for a total of 40 mL. A sterile dressing was then applied, and the patient was extubated and transferred to PACU in stable condition. Estimated blood loss was 25 mL. The Mccloud was discontinued at the end of the case. There were no additional complications. Billy Lester DO Yo Gaitan MD
[2018-12-14] MEDS ORDERED: Magnesium Sulfate 1 gm in D5W 1 GM/100 ML BAG IVPB ONE (09:12)
--- NOTE | 2018-12-14 09:18 | CP.PCM.PN ---
Subjective - Date & Time of Evaluation Date of Evaluation: 12/14/18 Time of Evaluation: 09:14 - Subjective Subjective: General Surgery Progress Note for Dr. Escalante Patient seen and examined at bedside this morning. No acute events overnight. No new complaints. Patient denies bloody output today. Patient denies nausea/vomiting, fever and/or chills. Objective - Vital Signs/Intake and Output Vital Signs (last 24 hours): Temp Pulse Resp BP Pulse Ox 99 F 73 18 144/82 98 12/14/18 06:00 12/14/18 06:00 12/14/18 06:00 12/14/18 06:00 12/14/18 06:00 Intake and Output: 12/14/18 12/14/18 06:59 18:59 Intake Total 760 Balance 760 - Medications Medications: Current Medications Aspirin (Ecotrin) 81 mg PO DAILY [facility] Last Admin: 12/06/18 09:56 Dose: 81 mg Benzocaine/Menthol (Cepacol Sore Throat) 1 kishore MT Q2H PRN PRN Reason: Sore Throat Last Admin: 12/13/18 20:43 Dose: 1 kishore Enoxaparin Sodium (Lovenox) 40 mg SC DAILY [facility]; Protocol Last Admin: 12/13/18 10:55 Dose: 40 mg Famotidine (Pepcid) 40 mg PO HS [facility] Last Admin: 12/13/18 22:33 Dose: 40 mg Magnesium Sulfate/Dextrose (Magnesium Sulfate 1 Gm/100 Ml D5w) 1 gm in 100 mls @ 100 mls/hr IVPB ONCE ONE Stop: 12/14/18 10:11 Insulin Detemir (Levemir) 30 unit SC [facility] Last Admin: 12/13/18 22:33 Dose: 30 units Insulin Human Regular (Humulin R Med) 0 units SC [facility]; Protocol Last Admin: 12/14/18 08:28 Dose: Not Given Ondansetron HCl (Zofran Inj) 4 mg IVP Q6 PRN PRN Reason: Nausea/Vomiting Last Admin: 12/11/18 12:56 Dose: 4 mg Oxycodone/Acetaminophen (Percocet 5/325 Mg Tab) 1 tab PO Q6H PRN PRN Reason: Pain, moderate (4-7) Stop: 12/14/18 14:24 Last Admin: 12/13/18 05:15 Dose: 1 tab - Labs Labs: 12/14/18 07:00 12/14/18 07:00 PT 14.6 SECONDS (9.4-12.5) H 12/12/18 07:20 INR 1.29 12/12/18 07:20 APTT 38.6 Seconds (26.9-38.3) H 12/12/18 07:20 - Additional Findings Additional findings: - Constitutional Appears: No Acute Distress - Head Exam Head Exam: NORMOCEPHALIC - Eye Exam Eye Exam: EOMI, Normal appearance - ENT Exam ENT Exam: Mucous Membranes Moist - Respiratory Exam Respiratory Exam: NORMAL BREATHING PATTERN - Cardiovascular Exam Cardiovascular Exam: +S1, +S2 - GI/Abdominal Exam GI & Abdominal Exam: Soft, Tenderness Additional comments: mild incision site tenderness - Neurological Exam Neurological Exam: Alert, Awake, Oriented x3 - Psychiatric Exam Psychiatric exam: Normal Mood - Skin Skin Exam: Dry, Intact, Warm Assessment and Plan - Assessment and Plan (Free Text) Assessment: This is a 63-year-old F who is s/p ex-lap w/ excision of RLQ mass, appendectomy, omentectomy, excision of pelvic implants all presumably secondary to previous ovarian mucinous carcinoma (path pending) POD-3 Plan: Patient tolerating HHD Encourage IS Encourage OOB and ambulate Pending pathology (f/u with Dr. Christensen as out-patient) Patient is cleared for discharge, per surgical team standpoint Further recommendations per Dr. Boris Capps PGY1
--- NOTE | 2018-12-14 11:48 | CP.PCM.DIS ---
<ZelayaGlynn - Last Filed: 12/16/18 13:53> Provider - Provider Date of Admission: 12/07/18 11:34 Attending physician: Clay Ko MD Primary care physician: [facility] -Dr. Chrissy Smith Consults: 12/05/18 12:09 Physician Consult Stat Comment: Consulting Provider: Yo Gaitan Consulting Physician: Yo Gaitan Reason for Consult: abnormal ct/dilatation of the appendix 12/05/18 15:47 Diabetic Education Referral Routine Comment: Physician Instructions: Reason For Exam: Uncotrolled DM Nursing Referral for Palliative Care Routine Comment: Physician Instructions: Reason For Exam: Dx of CA 12/05/18 17:01 Hematology Oncology Consult Routine Comment: Consulting Provider: Tomas Christensen Consulting Physician: Tomas Christensen Reason for Consult: staging ? ovarian mucocele vs epidermoid carcinoma, PMHx ovarian CA Time Spent in preparation of Discharge (in minutes): 45 Diagnosis - Discharge Diagnosis (1) RLQ abdominal mass Status: Acute (2) Mucinous cystadenocarcinoma of ovary Status: Resolved (3) Diabetes Status: Chronic (4) HTN (hypertension) Status: Chronic Hospital Course - Lab Results Lab Results: Micro Results 12/05/18 12:00 Blood Blood Culture - Final NO GROWTH AFTER 5 DAYS 12/05/18 12:00 Blood Gram Stain - Final TEST NOT PERFORMED 12/05/18 11:30 Blood Blood Culture - Final NO GROWTH AFTER 5 DAYS 12/05/18 11:30 Blood Gram Stain - Final TEST NOT PERFORMED 12/05/18 11:30 Urine Random Urine Culture - Final No Growth (<1,000 CFU/ML) Most Recent Lab Values WBC 6.7 10^3/uL (4.5-11.0) 12/14/18 07:00 RBC 4.17 10^6/uL (3.5-6.1) 12/14/18 07:00 Hgb 11.8 g/dL (12.0-16.0) L 12/14/18 07:00 Hct 34.7 % (36.0-48.0) L 12/14/18 07:00 MCV 83.2 fl (80.0-105.0) 12/14/18 07:00 MCH 28.3 pg (25.0-35.0) 12/14/18 07:00 MCHC 34.0 g/dl (31.0-37.0) 12/14/18 07:00 RDW 12.5 % (11.5-14.5) 12/14/18 07:00 Plt Count 192 10^3/uL (120.0-450.0) 12/14/18 07:00 MPV 10.3 fl (7.0-11.0) 12/14/18 07:00 Neut % (Auto) 56.8 % (50.0-68.0) 12/14/18 07:00 Lymph % (Auto) 34.7 % (22.0-35.0) 12/14/18 07:00 [place] % (Auto) 5.1 % (1.0-6.0) 12/14/18 07:00 Eos % (Auto) 3.3 % (1.5-5.0) 12/14/18 07:00 Baso % (Auto) 0.1 % (0.0-3.0) 12/14/18 07:00 Lymph # (Auto) 2.3 (1.2-3.4) 12/14/18 07:00 [place] # (Auto) 0.3 (0.1-0.6) 12/14/18 07:00 Eos # (Auto) 0.2 (0.0-0.7) 12/14/18 07:00 Baso # (Auto) 0.01 K/mm3 (0.0-2.0) 12/14/18 07:00 Absolute Neuts (auto) 3.79 (1.4-6.5) 12/14/18 07:00 PT 14.6 SECONDS (9.4-12.5) H 12/12/18 07:20 INR 1.29 12/12/18 07:20 APTT 38.6 Seconds (26.9-38.3) H 12/12/18 07:20 Sodium 143 mmol/L (132-148) 12/14/18 07:00 Potassium 3.7 mmol/L (3.6-5.0) 12/14/18 07:00 Chloride 104 mmol/L (98-107) 12/14/18 07:00 Carbon Dioxide 30 mmol/L (21-33) 12/14/18 07:00 Anion Gap 13 (10-20) 12/14/18 07:00 BUN 9 mg/dL (7-21) 12/14/18 07:00 Creatinine 0.6 mg/dl (0.7-1.2) L 12/14/18 07:00 Est GFR ( Amer) > 60 12/14/18 07:00 Est GFR (Non-Af Amer) > 60 12/14/18 07:00 POC Glucose (mg/dL) 181 mg/dL (65-110) H 12/14/18 11:27 Random Glucose 127 mg/dL (70-110) H 12/14/18 07:00 Hemoglobin A1c 5.2 % (4.2-6.5) 12/07/18 12:30 Calcium 9.7 mg/dL (8.4-10.5) 12/14/18 07:00 Phosphorus 3.5 mg/dL (2.5-4.5) 12/12/18 07:20 Magnesium 1.6 mg/dL (1.7-2.2) L 12/14/18 07:00 Total Bilirubin 0.3 mg/dL (0.2-1.3) 12/14/18 07:00 AST 22 U/L (14-36) 12/14/18 07:00 ALT 8 U/L (7-56) 12/14/18 07:00 Alkaline Phosphatase 69 U/L (38-126) 12/14/18 07:00 Total Protein 7.0 g/dL (5.8-8.3) 12/14/18 07:00 Albumin 3.5 g/dL (3.0-4.8) 12/14/18 07:00 Globulin 3.5 gm/dL 12/14/18 07:00 Albumin/Globulin Ratio 1.0 (1.1-1.8) L 12/14/18 07:00 Lipase 181 U/L (23-300) 12/05/18 11:30 CA 125 Antigen 49.6 U/mL (0-35) H 12/07/18 07:20 Urine Color Yellow (YELLOW) 12/05/18 11:30 Urine Appearance Clear (CLEAR) 12/05/18 11:30 Urine pH 6.0 (4.7-8.0) 12/05/18 11:30 Ur Specific [place] 1.020 (1.005-1.035) 12/05/18 11:30 Urine Protein Negative mg/dL (<30 mg/dL) 12/05/18 11:30 Urine Glucose (UA) >=1000 mg/dL (NEGATIVE) 12/05/18 11:30 Urine Ketones Negative mg/dL (NEGATIVE) 12/05/18 11:30 Urine Blood Negative (NEGATIVE) 12/05/18 11:30 Urine Nitrate Negative (NEGATIVE) 12/05/18 11:30 Urine Bilirubin Negative (NEGATIVE) 12/05/18 11:30 Urine Urobilinogen 0.2 E.U./dL (<1 E.U./dL) 12/05/18 11:30 Ur Leukocyte Esterase Small Belkys/uL (NEGATIVE) H 12/05/18 11:30 Urine RBC 0 - 2 /hpf (0-2) 12/05/18 11:30 Urine WBC 5 - 10 /hpf (0-6) H 12/05/18 11:30 Ur Epithelial Cells 4 - 5 /hpf (0-5) 12/05/18 11:30 Urine Bacteria Small /hpf (NONE) 12/05/18 11:30 Blood Type O POSITIVE 12/07/18 12:30 Blood Type Confirm O POSITIVE 12/07/18 13:50 Antibody Screen Negative 12/07/18 12:30 BBK History Checked No verified bt 12/07/18 12:30 - Hospital Course Hospital Course: Glynn Zelaya DO PGY1 - Internal Medicine [id number] Application Developer Hospitalist DC Summary: Patient is a 63F w/ a PMH of 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 The patient was sent in from the medical clinic for evaluation of an abnormal abdominal/pelvic CT scan performed two weeks ago, which showed a dilated appendix with concern for mucocele versus epidermoid carcinoma. During admission, heme-onc and General surgery were consulted for further evaluation of the mass. Heme-Onc recommended surgical intervention if MRI was consistent w/ appendiceal mucocele. It was noted that the CA-125 was elevated and the patient would need Pulley Maintainer-Onc follow up as an outpt. While admitted patient underwent MRI of the pelvis which showed a cystic thick-walled loculated lesion in the right pericolic gutter adjacent to the cecum ict sales representative of an appendiceal mucocele. On 12/11, general surgery performed Exploratory Laparotomy. Appendectomy w/ excision of RLQ-retroperitoneal mass. Extensive Lysis of Adhesions. Partial Omentectomy. Removal of Pelvic implants. Patient was monitored post-operatively until 12/14 and subsequently discharged w/ appropriate followup. During post-op period pt. was having flatus, passing BM, afebrile, and without shortness of breath. Patient was recommended that she will need outpt PET, and will need outpt FORGE TENDER/Onc follow up. Morning prior to discharge, patient was seen and evaluated at bedside. No acute events reported overnight Patient reported no fevers, chills, shortness of breath, abd pain, n/v/d/c, urinary discomfort Discharge medications, and discharge plans were reviewed with patient Patient verbalized understanding of discharge plan as written below Patient was seen, evaluated, and discussed w/ attending physician Dr. Ko prior to discharge - Date & Time of H&P Date of H&P: 12/05/18 Time of H&P: 13:29 Discharge Exam - Head Exam Head Exam: ATRAUMATIC, NORMOCEPHALIC - Eye Exam Eye Exam: EOMI, PERRL - Respiratory Exam Respiratory Exam: Clear to PA & Lateral, NORMAL BREATHING PATTERN, UNREMARKABLE - Cardiovascular Exam Cardiovascular Exam: REGULAR RHYTHM - GI/Abdominal Exam GI & Abdominal Exam: Normal Bowel Sounds Additional comments: Distended, Tympanic - Neurological Exam Neurological exam: Alert, CN II-XII Intact, Oriented x3 - Psychiatric Exam Psychiatric exam: Normal Affect, Normal Mood - Skin Skin Exam: Dry, Intact, Normal Color, Warm Discharge Plan - Follow Up Plan Condition: FAIR Disposition: HOME/ ROUTINE Instructions: Surgical Wound (DC), Acute Abdomen (Belly Pain), Adult (DC), Diabetes Diet , Postoperative Pain (DC) Additional Instructions: You were found to have a mass in your abdomen; You had surgery which included removal of the abdominal mass and your appendixx (exploratory laparotomy w/ appendectomy) on 12/[address] Gaitan Follow up with your primary Dr. Smith and [facility] on December 25 at 1:30pm upon discharge. Follow up with your surgeon Dr. Gaitan within 7-10 days of discharge Follow up with hematology/oncology Dr. Christensen or MD Mays within 3-5 days of discharge Please go to [facility] on 12/26 to have your surgical ivonne removed Avoid any heavy lifting or physical exertion for the next 4-6 weeks ; Follow up recommendations per surgery Please take tylenol or motrin over the counter for your pain If you notice any episode of fever, bleeding, or severe abdominal pain please go to the nearest emergency room. Referrals: [facility] at [facility] [place]Outside] Tomas Christensen MD [Staff Provider] - Rl Mays MD [Staff Provider] - Yo Gaitan MD [Staff Provider] - Chrissy Smith MD [Family Provider] - <Clay Ko - Last Filed: 12/16/18 14:28> Provider - Provider Date of Admission: 12/07/18 11:34 Attending physician: Clay Ko MD Consults: 12/05/18 12:09 Physician Consult Stat Comment: Consulting Provider: Yo Gaitan Consulting Physician: Yo Gaitan Reason for Consult: abnormal ct/dilatation of the appendix 12/05/18 15:47 Diabetic Education Referral Routine Comment: Physician Instructions: Reason For Exam: Uncotrolled DM Nursing Referral for Palliative Care Routine Comment: Physician Instructions: Reason For Exam: Dx of CA 12/05/18 17:01 Hematology Oncology Consult Routine Comment: Consulting Provider: Tomas Christensen Consulting Physician: Tomas Christensen Reason for Consult: staging ? ovarian mucocele vs epidermoid carcinoma, PMHx ovarian CA Hospital Course - Lab Results Lab Results: Micro Results 12/05/18 12:00 Blood Blood Culture - Final NO GROWTH AFTER 5 DAYS 12/05/18 12:00 Blood Gram Stain - Final TEST NOT PERFORMED 12/05/18 11:30 Blood Blood Culture - Final NO GROWTH AFTER 5 DAYS 12/05/18 11:30 Blood Gram Stain - Final TEST NOT PERFORMED 12/05/18 11:30 Urine Random Urine Culture - Final No Growth (<1,000 CFU/ML) Most Recent Lab Values WBC 6.7 10^3/uL (4.5-11.0) 12/14/18 07:00 RBC 4.17 10^6/uL (3.5-6.1) 12/14/18 07:00 Hgb 11.8 g/dL (12.0-16.0) L 12/14/18 07:00 Hct 34.7 % (36.0-48.0) L 12/14/18 07:00 MCV 83.2 fl (80.0-105.0) 12/14/18 07:00 MCH 28.3 pg (25.0-35.0) 12/14/18 07:00 MCHC 34.0 g/dl (31.0-37.0) 12/14/18 07:00 RDW 12.5 % (11.5-14.5) 12/14/18 07:00 Plt Count 192 10^3/uL (120.0-450.0) 12/14/18 07:00 MPV 10.3 fl (7.0-11.0) 12/14/18 07:00 Neut % (Auto) 56.8 % (50.0-68.0) 12/14/18 07:00 Lymph % (Auto) 34.7 % (22.0-35.0) 12/14/18 07:00 [place] % (Auto) 5.1 % (1.0-6.0) 12/14/18 07:00 Eos % (Auto) 3.3 % (1.5-5.0) 12/14/18 07:00 Baso % (Auto) 0.1 % (0.0-3.0) 12/14/18 07:00 Lymph # (Auto) 2.3 (1.2-3.4) 12/14/18 07:00 [place] # (Auto) 0.3 (0.1-0.6) 12/14/18 07:00 Eos # (Auto) 0.2 (0.0-0.7) 12/14/18 07:00 Baso # (Auto) 0.01 K/mm3 (0.0-2.0) 12/14/18 07:00 Absolute Neuts (auto) 3.79 (1.4-6.5) 12/14/18 07:00 PT 14.6 SECONDS (9.4-12.5) H 12/12/18 07:20 INR 1.29 12/12/18 07:20 APTT 38.6 Seconds (26.9-38.3) H 12/12/18 07:20 Sodium 143 mmol/L (132-148) 12/14/18 07:00 Potassium 3.7 mmol/L (3.6-5.0) 12/14/18 07:00 Chloride 104 mmol/L (98-107) 12/14/18 07:00 Carbon Dioxide 30 mmol/L (21-33) 12/14/18 07:00 Anion Gap 13 (10-20) 12/14/18 07:00 BUN 9 mg/dL (7-21) 12/14/18 07:00 Creatinine 0.6 mg/dl (0.7-1.2) L 12/14/18 07:00 Est GFR ( Amer) > 60 12/14/18 07:00 Est GFR (Non-Af Amer) > 60 12/14/18 07:00 POC Glucose (mg/dL) 181 mg/dL (65-110) H 12/14/18 11:27 Random Glucose 127 mg/dL (70-110) H 12/14/18 07:00 Hemoglobin A1c 5.2 % (4.2-6.5) 12/07/18 12:30 Calcium 9.7 mg/dL (8.4-10.5) 12/14/18 07:00 Phosphorus 3.5 mg/dL (2.5-4.5) 12/12/18 07:20 Magnesium 1.6 mg/dL (1.7-2.2) L 12/14/18 07:00 Total Bilirubin 0.3 mg/dL (0.2-1.3) 12/14/18 07:00 AST 22 U/L (14-36) 12/14/18 07:00 ALT 8 U/L (7-56) 12/14/18 07:00 Alkaline Phosphatase 69 U/L (38-126) 12/14/18 07:00 Total Protein 7.0 g/dL (5.8-8.3) 12/14/18 07:00 Albumin 3.5 g/dL (3.0-4.8) 12/14/18 07:00 Globulin 3.5 gm/dL 12/14/18 07:00 Albumin/Globulin Ratio 1.0 (1.1-1.8) L 12/14/18 07:00 Lipase 181 U/L (23-300) 12/05/18 11:30 CA 125 Antigen 49.6 U/mL (0-35) H 12/07/18 07:20 Urine Color Yellow (YELLOW) 12/05/18 11:30 Urine Appearance Clear (CLEAR) 12/05/18 11:30 Urine pH 6.0 (4.7-8.0) 12/05/18 11:30 Ur Specific [place] 1.020 (1.005-1.035) 12/05/18 11:30 Urine Protein Negative mg/dL (<30 mg/dL) 12/05/18 11:30 Urine Glucose (UA) >=1000 mg/dL (NEGATIVE) 12/05/18 11:30 Urine Ketones Negative mg/dL (NEGATIVE) 12/05/18 11:30 Urine Blood Negative (NEGATIVE) 12/05/18 11:30 Urine Nitrate Negative (NEGATIVE) 12/05/18 11:30 Urine Bilirubin Negative (NEGATIVE) 12/05/18 11:30 Urine Urobilinogen 0.2 E.U./dL (<1 E.U./dL) 12/05/18 11:30 Ur Leukocyte Esterase Small [place]/uL (NEGATIVE) H 12/05/18 11:30 Urine RBC 0 - 2 /hpf (0-2) 12/05/18 11:30 Urine WBC 5 - 10 /hpf (0-6) H 12/05/18 11:30 Ur Epithelial Cells 4 - 5 /hpf (0-5) 12/05/18 11:30 Urine Bacteria Small /hpf (NONE) 12/05/18 11:30 Blood Type O POSITIVE 12/07/18 12:30 Blood Type Confirm O POSITIVE 12/07/18 13:50 Antibody Screen Negative 12/07/18 12:30 BBK History Checked No verified bt 12/07/18 12:30 Attending/Attestation - Attestation I have personally seen and examined this patient.: Yes I have fully participated in the care of the patient.: Yes I have reviewed all pertinent clinical information, including history, physical exam and plan: Yes Notes (Text): 12/16/18 14:22 Attending note; Patient seen and examined with resident. Patient is sitting in the chair. Not in any acute distress. Had bowel movement today. Tolerating diet well. Surgical site is clean with dressing. Ivonne present. Patient is a 63-year-old female with past medical history significant for mucinous ovarian carcinoma with VALERIANO-BSO 2018, type 2 diabetes, and hypertension that presented to the emergency room with right-sided abdominal pain. 1. Right sided abdominal pain. Appendiceal mucocele. S/P exploratory laparotomy, appendectomy with excision of right lower quadrant retroperitoneal mass, extensive lysis of adhesions, partial omentectomy, removal pelvic implants on 12/11/18. surgery Evaluation appreciated . Suture removal in 1 week . Pathology results pending. 2. History of mucinous ovarian carcinoma status post VALERIANO-BSO. Oncology evaluation appreciated. Needs close follow-up for further treatment options after biopsy results. 3. Type 2 diabetes. Continue insulin sliding scale. Continue Levemir. Continue to monitor Accu-Cheks. Hemoglobin A1c 5.2. 4. History of hypertension. Controlled with diet. Patient will be discharged home today. Follow-up with [facility] [place]. Follow-up with oncology as outpatient.
[2018-12-14] MEDS: Enoxaparin 40 mg Syringe SC SCH (14:22)
== END 2018-12-14 15:37 | disposition home or self-care (01) | DRG 225 ==
LOC: ED 10:20 → ERH 12:15 → 5RSO 13:35 → OBSVTOIN 12-07 11:34
PROVIDERS: ADMIT Internal Medicine; ATTEND Internal Medicine
PROC: 0DTJ0ZZ Resection of Appendix, Open Approach (ICD-10-PCS; 2018-12-11)
PROC: 0DNW0ZZ Release Peritoneum, Open Approach (ICD-10-PCS; 2018-12-11)
PROC: 0WBH0ZZ Excision of Retroperitoneum, Open Approach (ICD-10-PCS; 2018-12-11)
PROC: 0DBU0ZZ Excision of Omentum, Open Approach (ICD-10-PCS; principal; 2018-12-11 07:30)
DX: C18.1 Malignant neoplasm of appendix (principal); C78.6 Secondary malignant neoplasm of retroperitoneum and peritoneum; Z85.43 Personal history of malignant neoplasm of ovary; E11.65 Type 2 diabetes mellitus with hyperglycemia; I10 Essential (primary) hypertension; K38.8 Other specified diseases of appendix; N39.0 Urinary tract infection, site not specified; N73.6 Female pelvic peritoneal adhesions (postinfective); K59.00 Constipation, unspecified; Z79.4 Long term (current) use of insulin; Z90.710 Acquired absence of both cervix and uterus; Z90.722 Acquired absence of ovaries, bilateral